=== PATIENT | female | born 1970 | race African-American/Black ===

== ENCOUNTER 2024-11-03 20:16 | Inpatient (IN) | payer OTHER, SELFPAY ==
--- NOTE | 2024-11-03 21:31 | RAD REPORT ---
EXAMINATION: Pelvis CLINICAL INDICATION: Female, 54 years old. GLF, L hip injury COMPARISON: No prior exam. FINDINGS: Suspected chronic superolateral subluxation at the left femoral head which may be complicated by eith er developmental hip dysplasia or prior avascular necrosis with subchondral collapse and secondary degenerative changes. No definite acute fractures identified. Peripheral vascular calcifications. IMPRESSION: No definite acute osseous abnormality. Left femoral head irregularity and superolateral subluxation i s likely primarily chronic findings though an acute change is difficult in the absence of recent priors.
[2024-11-03] MEDS ORDERED: MORPHINE 4 MG/ML SYR ONE ×2 (21:49→23:07)
[2024-11-03] MEDS ORDERED: ONDANSETRON 4 MG/2 ML VIAL ONE (21:49)
[2024-11-03] MEDS ORDERED: NA CHLORIDE 0.9% 1,000 ML ONE (21:50)
[2024-11-03 21:51] LABS: Absolute Basophils 0.1 K/uL (0-0.5); Absolute Lymphocytes (CBC) 2.6 K/uL (0.7-4.9); Absolute Monocytes 1.6 K/uL (0.1-1.3); Absolute Neutrophil 12.2 K/uL (1.8-8.0); Basophils % 0.4 % (0-1.3); Hematocrit 32.9 % (36.0-45.0); Hemoglobin 10.6 g/dL (12.0-15.0); Lymphocytes % 15.5 % (15.3-44.8); MCH 25.5 pg (27.0-35.0); MCHC 32.1 g/dL (32.0-36.0); MCV 79.5 fL (80-100); MPV 6.5 fL (7.6-11.3); Neutrophils % 74.1 % (41.7-73.7); Nucleated Red Blood Cells % 0.1 % (0-0); Platelets 348 thou/uL (152-406); RBC Red Blood Cell Count 4.14 M/uL (3.86-4.86); Red Cell Distribution Width 20.2 % (12.1-15.2)
[2024-11-03 22:09] LABS: Albumin 2.6 g/dL (3.4-5.0); Albumin/Globulin Ratio 0.6 (1.1-1.8); Anion Gap 13.6 mEq/L (5.0-15.0); Bilirubin Total 0.3 mg/dL (0.2-1.0); Globulin 4.4 g/dL (2.3-3.5); Potassium 3.6 mEq/L (3.5-5.1)
[2024-11-03 22:39] LABS: Anisocytosis 1+; Blood Morphology Comment NOTED (NOT SEEN); Microcytosis 1+; Platelet Estimate ADEQ; White Blood Cell Scan OK (OK)
[2024-11-03 23:56] LABS: Specific Gravity 1.018 (1.005-1.030); Sqamous Epithelial <5 /HPF (None Seen); Urine Bacteria None Seen /HPF (<20); Urine Bilirubin NEGATIVE (Negative); Urine Blood Trace (Negative); Urine Clarity Clear (Clear); Urine Color Yellow (Yellow); Urine Culture Reflex Order NOT NEEDED; Urine Glucose NEGATIVE (Negative); Urine Ketones 2+ (Negative); Urine Micro Reflex YN NO BILL MICROSCOPIC; Urine Mucus Slight /HPF (None Seen); Urine Nitrite NEGATIVE (Negative); Urine Protein TRACE (Negative); Urine RBC <5 /HPF (None Seen); Urine Urobilinogen Normal (Normal); Urine WBC <5 /HPF (<5); Urine pH 6.5 (5.0-7.0)
[2024-11-04] MEDS ORDERED: METHYLPREDNISOLONE 125 MG INJ ONE (01:09)
[2024-11-04] MEDS ORDERED: CEFTRIAXONE 1000 MG/VIAL ONE (01:09)
[2024-11-04] MEDS ORDERED: NA CHLORIDE 0.9% 50 ML ONE (01:09)
[2024-11-04] MEDS ORDERED: NA CHLORIDE 0.9% 250 ML ONE (01:09)
[2024-11-04] MEDS ORDERED: AZITHROMYCIN 500 MG INJ IVPB ONE (01:09)
--- NOTE | 2024-11-04 02:13 | ER ---
[facility] Name: Kelly Acevedo Age: 54 yrs Sex: Female : 1970 Arrival Date: 11/03/2024 Time: 20:16 Bed 4 Private MD: Diagnosis: Unspecified bacterial pneumonia;Sepsis, unspecified organism Presentation: 11/03 20:28 Chief complaint: Patient states: has been experiencing n/v/d, abdominal pain, and al5 weakness for the past week. today her walker got away from her and attempted to catch it, fell and hit her L hip. denies any LOC, head or neck pain. Care prior to arrival: waist binder in place Medication(s) given: 100 mcg fentanyl IM, 4mg zofran IM Glucose check: 88. Mechanism of Injury: Fall. Trauma event details: Injury occurred in the [facility], Injury occurred: at home. Injury occurred: November 03, 2024. 20:28 Acuity: CARO 3 al5 20:28 Method Of Arrival: EMS: [facility] al5 20:35 Coronavirus screen: At this time, the client does not indicate any symptoms associated al5 with coronavirus-19. Ebola Screen: No symptoms or risks identified at this time. Initial Sepsis Screen: Does the patient meet any 2 criteria? HR > 90 bpm. No. Patient's initial sepsis screen is negative. Does the patient have a suspected source of infection? No. Patient's initial sepsis screen is negative. Risk Assessment: Do you want to hurt yourself or someone else? Patient reports no desire to harm self or others. Onset of symptoms was November 03, 2024. Triage Assessment: 20:35 General: see trauma assessment. 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: 20:41 LMP N/A - Post-menopause, Not al5 Trauma Activation: Physician: ED Physician; Name: ; Notified At: ; Arrived At: Physician: General Surgeon; Name: ; Notified At: ; Arrived At: Physician: Radiology; Name: ; Notified At: ; Arrived At: Physician: Respiratory; Name: ; Notified At: ; Arrived At: Physician: Lab; Name: ; Notified At: ; Arrived At: 20:28 n/a al5 Historical: - Allergies: 20:36 PENICILLINS; al5 20:36 Codeine; al5 20:36 tramadol; al5 20:38 NSAIDS; al5 - PMHx: 20:36 Congestive heart failure; Hypertensive disorder; Asthma; tachycardia; al5 - PSHx: 20:36 section; al5 - Immunization history: Last tetanus immunization: unknown. - Infectious Disease History:: Denies. - Social history:: Smoking status: Patient denies any tobacco usage or history of. Screenin:34 Abuse screen: Denies threats or abuse. Denies injuries from another. Nutritional al5 screening: No deficits noted. Tuberculosis screening: No symptoms or risk factors identified. Fall risk At risk due to injury. 20:39 [facility] ED Fall Risk Assessment (Adult) History of falling in the last 3 months, al5 including since admission Yes- single mechanical fall (1 pt) Confusion or Disorientation No (0 pts) Intoxicated or Sedated No (0 pts) Impaired Gait Yes (1 pt) Mobility Assist Device Used Yes (1 pt) Altered Elimination Yes (1 pt) Score/Fall Risk Level 3 or more points = High Risk Oriented to surroundings, Maintained a safe environment, Provided non-skid footwear, Hourly rounding (assess needs \T\ fall precautionary measures) done. Primary Survey: 20:32 NO uncontrolled hemorrhage observed. A: The client is awake and alert. The airway is al5 patent. Breathing/Chest: Spontaneous respiratory effort, equal unlabored respirations, breath sounds clear bilaterally, regular pattern, symmetrical chest rise and fall. Circulation: No external hemorrhage present. Regular and strong central pulse, skin warm/dry/normal color. Disability Pupils are equal, round, reactive to light and accommodation. Client is alert. Exposure/Environment: All clothing and personal items were removed. There is no evidence of uncontrolled external bleeding. Obvious injury(ies) are noted at this time: shortening in L leg, pain in L hip. 11/04 00:20 Reassessment Alertness and Airway: Awake and alert. The airway is patent. Breathing: al5 Spontaneous respiratory effort, equal unlabored respirations, breath sounds clear bilaterally, regular pattern with symmetrical chest rise and fall. Circulation: No external hemorrhage noted. Regular and strong central pulse, skin warm/dry/normal color. Disability: Pupils Pupils are equal, round, reactive to light and accomodation. Alert. Secondary Survey: 11/03 20:32 HEENT: No deficits noted. Gastrointestinal: No deficits noted. : No deficits noted. al5 Musculoskeletal: shortening of L leg, pain in L hip. Assessment: 20:31 General: Appears in no apparent distress. uncomfortable, Behavior is calm, cooperative. al5 Pain: Complains of pain in umbilical area, right upper quadrant and left hip Pain currently is 8 out of 10 on a pain scale. Neuro: Level of Consciousness is awake, alert, obeys commands, Oriented to person, place, time, situation. EENT: No signs and/or symptoms were reported regarding the EENT system. Cardiovascular: Capillary refill < 3 seconds Patient's skin is warm and dry. Respiratory: Airway is patent Respiratory effort is even, unlabored, Respiratory pattern is regular, symmetrical. GI: Abdomen is round non-distended, Reports upper abdominal pain, diarrhea, nausea, vomiting. : No signs and/or symptoms were reported regarding the genitourinary system. Derm: Skin is intact, is healthy with good turgor, Skin is pink, warm \T\ dry. normal. Musculoskeletal: shortening in L leg Reports pain in left hip. 21:24 Reassessment: Patient appears in no apparent distress at this time. No changes from al5 previously documented assessment. Patient and/or family updated on plan of care and expected duration. Pain level reassessed. Patient is alert, oriented x 3, equal unlabored respirations, skin warm/dry/pink. 22:18 Reassessment: Patient appears in no apparent distress at this time. No changes from al5 previously documented assessment. Patient and/or family updated on plan of care and expected duration. Pain level reassessed. Patient is alert, oriented x 3, equal unlabored respirations, skin warm/dry/pink. 23:30 Reassessment: Patient appears in no apparent distress at this time. No changes from al5 previously documented assessment. Patient and/or family updated on plan of care and expected duration. Pain level reassessed. Patient is alert, oriented x 3, equal unlabored respirations, skin warm/dry/pink. 11/04 00:19 Reassessment: Patient appears in no apparent distress at this time. No changes from al5 previously documented assessment. Patient and/or family updated on plan of care and expected duration. Pain level reassessed. Patient is alert, oriented x 3, equal unlabored respirations, skin warm/dry/pink. 01:21 Reassessment: Patient appears in no apparent distress at this time. No changes from al5 previously documented assessment. Patient and/or family updated on plan of care and expected duration. Pain level reassessed. Patient is alert, oriented x 3, equal unlabored respirations, skin warm/dry/pink. 02:08 Reassessment: Patient appears in no apparent distress at this time. No changes from al5 previously documented assessment. Patient and/or family updated on plan of care and expected duration. Pain level reassessed. Patient is alert, oriented x 3, equal unlabored respirations, skin warm/dry/pink. Vital Signs: 11/03 20:35 BP 127 / 83; Pulse 114; Resp 18; Temp 98.4; Pulse Ox 99% on R/A; Weight 66.68 kg; al5 Height 5 ft. 1 in. ; Pain 06/03; 21:00 BP 123 / 84; Pulse 117; Resp 18; Pulse Ox 98% on R/A; al5 21:35 BP 128 / 74; Pulse 111; Resp 17; Pulse Ox 98% on R/A; al5 22:00 BP 110 / 71; Pulse 110; Resp 17; Pulse Ox 96% on R/A; al5 22:30 BP 100 / 62; Pulse 103; Resp 16; Pulse Ox 96% on R/A; al5 23:00 BP 129 / 82; Pulse 103; Resp 18; Pulse Ox 100% on R/A; al5 11/04 00:00 BP 116 / 73; Pulse 99; Resp 16; Pulse Ox 100% on R/A; al5 00:14 BP 116 / 73; Pulse 105; ec2 00:30 BP 115 / 68; Pulse 100; Resp 17; Pulse Ox 96% on R/A; al5 01:00 BP 115 / 72; Pulse 100; Resp 18; Pulse Ox 94% on R/A; al5 01:30 BP 100 / 68; Pulse 97; Resp 15; Pulse Ox 95% on R/A; al5 02:00 BP 96 / 70; Pulse 99; Resp 16; Pulse Ox 95% on R/A; al5 02:30 BP 98 / 67; Pulse 101; Resp 16; Pulse Ox 96% on R/A; al5 02:46 BP 97 / 58; Pulse 102; Resp 15; Pulse Ox 96% on R/A; al5 03:00 BP 98 / 62; Pulse 102; Resp 15; Pulse Ox 96% on R/A; al5 11/03 20:35 Body Mass Index 27.78 (66.68 kg, 154.94 cm) al5 02 20:35 Pain Scale: Adult al5 Saravanan Coma Score: 11/03 20:40 Eye Response: spontaneous(4). Motor Response: obeys commands(6). Verbal Response: al5 oriented(5). Total: 15. Trauma Score (Adult): 20:40 Eye Response: spontaneous(1); Verbal Response: oriented(1); Motor Response: obeys al5 commands(2); Systolic BP: > 89 mm Hg(4); Respiratory Rate: 10 to 29 per min(4); Saravanan Score: 15; Trauma Score: 12 ED Course: 20:27 Patient arrived in ED. ec2 20:27 Marino Lira MD is Attending Physician. ec2 20:27 Sherlyn Burns RN is Primary Nurse. al5 20:30 Triage completed. al5 20:34 Patient has correct armband on for positive identification. Placed in gown. Bed in low al5 position. Call light in reach. Side rails up X2. 20:34 No provider procedures requiring assistance completed. Patient maintains SpO2 al5 saturation greater than 95% on room air. 20:40 Arm band placed on right wrist. Patient placed in the treatment room, on a stretcher, al5 on pulse oximetry. 20:40 Thermoregulation: warm blanket given to patient. al5 20:41 Provided Education on: plan of care. al5 21:04 Pelvis XRAY In Process Unspecified. EDMS 21:28 Missed attempt(s): 22 gauge in right antecubital area. Bleeding controlled, band aid al5 applied, catheter tip intact. 21:28 Missed attempt(s): 22 gauge in right forearm. Bleeding controlled, band aid applied, al5 catheter tip intact. 21:47 CBC with Diff Sent. al5 21:47 CMP Sent. al5 21:47 Lipase Sent. al5 21:49 Accessed peripheral vein via ultrasound, utilizing dynamic ultrasound technique Blood cm10 collected. Clean \T\ dry. Dressing intact. Good blood return. Flushes easily. 20G right wrist.. Missed attempt(s): 20 gauge in left forearm. Bleeding controlled, band aid applied, catheter tip intact. 22:47 Cop[place] cath inserted, using sterile technique, 16 Fr., by me, balloon inflated, to al5 gravity drainage, urine specimen collected. Patient tolerated well. 23:29 Abdomen In Process Unspecified. EDMS 02 01:24 CXR XRAY In Process Unspecified. EDMS 02:12 Franki Haji MD is Hospitalizing Provider. ec2 03:07 Patient admitted, IV remains in place. al5 Administered Medications: 11/03 22:00 Drug: Ondansetron IVP 4 mg IVP once; over 2 minutes Route: IVP; Site: right forearm; al5 22:40 Follow up: Response: No adverse reaction al5 22:00 Drug: morphine IVP or IV 4 mg IVP once over 4 mins Route: IVP; Infused Over: 4 mins; al5 Site: right forearm; 22:40 Follow up: Response: No adverse reaction; Pain is decreased al5 22:00 Drug: NS 0.9% IV 1000 ml IV at 1 bolus Per protocol; to be given as a bolus over 60 al5 minutes Route: IV; Rate: 1 bolus; Site: right forearm; 11/04 00:16 Follow up: Response: No adverse reaction; IV Status: Completed infusion; IV Intake: al5 1000ml 11/03 23:16 Drug: morphine IVP or IV 4 mg IVP once over 4 mins Route: IVP; Infused Over: 4 mins; al5 Site: right forearm; 11/04 01:43 Follow up: Response: No adverse reaction; No adverse reaction; brought pain down a al5 little bit 01:19 Drug: Rocephin IV 1 grams IV at bolus once; Given slow IV push per pharmacy al5 instructions Route: IV; Rate: bolus; Site: right forearm; 01:43 Follow up: Response: No adverse reaction; IV Status: Completed infusion; IV Intake: [id number] 01:19 Not Given (Patient Refused; states last time she had it, put her in a diabetic comaa): al5 [id number] mg IVP once 01:43 Drug: AZITHromycin IVPB 500 mg IVPB once over 1 hrs; (mix in 250 mL NS) Route: IVPB; al5 Infused Over: 1 hrs; Site: right forearm; 03:06 Follow up: Response: No adverse reaction; IV Status: Completed infusion; IV Intake: al5 250ml 03:06 Not Given (Hemodynamic Parameters; bp 97/58, physician notified. pain medication al5 changee): morphineor iv 4 mg IVP once over 4 mins 03:06 Drug: fentaNYL (PF) IVP 25 mcg IVP once Route: IVP; Site: right forearm; al5 04:50 Follow up: Response: No adverse reaction; Pain is unchanged, physician notified al5 05:26 Drug: morphine IVP or IV 4 mg IVP once over 4 mins Route: IVP; Infused Over: 4 mins; al5 Site: right forearm; 06:51 Follow up: Response: No adverse reaction; Pain is decreased al5 Medication: 11/03 20:39 VIS not applicable for this client. al5 Intake: 11/04 00:16 IV: 1000ml; Total: 1000ml. al5 01:43 IV: 50ml; Total: 1050ml. al5 03:06 IV: 250ml; Total: 1300ml. al5 11/03 20:40 n/a al5 Outcome: 11/04 02:12 Decision to Hospitalize by Provider. ec2 03:07 Admitted to ER Hold. Please see [facility] for further documentation. al5 03:07 Condition: stable 03:07 Instructed on the need for admit, 03:07 Patient's length of stay in the Emergency Department was greater than 2 hours. patient admitted to ED holdPatient's length of stay extended due to 08:12 Patient left the ED. iw Signatures: Dispatcher [employer] Heydi Beckman RN RN iw Martinez, Clarissa, RN RN cm10 Marino Lira MD MD 2 Sherlyn Burns RN RN al5 Corrections: (The following items were deleted from the chart) 11/03 21:29 21:28 Missed attempt(s): 22 gauge in right antecubital area. al5 al5
--- NOTE | 2024-11-04 02:13 | EDPHYS ---
Physician Documentation [facility] Name: Kelly Acevedo Age: 54 yrs Sex: Female : 1970 Arrival Date: 11/03/2024 Time: 20:16 Bed 4 Private MD: ED Physician Marino Lira HPI: 11/03 20:28 This 54 yrs old Female presents to ER via Unassigned with complaints of Hip Injury, Hip ec2 Pain, Abdominal Pain, Nausea/Vomiting/Diarrhea. 20:29 Patient arrives today for evaluation of abdominal pain along with nausea and vomiting ec2 and left hip pain. Patient reports she has been having abdominal pain along with nausea vomiting for the past week. Reports decreased p.o. intake. Reports that she was walking as well and had a ground-level fall. No LOC, no head strike, no neck pain. Patient reports a baseline history of tachycardia and is baseline tachycardic with heart rate in the 110s.. 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 - Infectious Disease History:: Denies. - Social history:: Smoking status: Patient denies any tobacco usage or history of. ROS: 20:30 Constitutional: as per hpi ec2 Exam: 20:30 Constitutional: GEN: NAD Head: atraumatic Eyes: EOMI Ears: External ears are ec2 normal. CV: regular rate LUNGS: no respiratory distress ABD: non-distended, soft, generally tender, chronic, not rigid. SKIN: no evidence of rashes MSK: Left hip with TTP, intact distal neurovascular status Vital Signs: 20:35 BP 127 / 83; Pulse 114; Resp 18; Temp 98.4; Pulse Ox 99% on R/A; Weight 66.68 kg; al5 Height 5 ft. 1 in. ; Pain 9/10; 21:00 BP 123 / 84; Pulse 117; Resp 18; Pulse Ox 98% on R/A; al5 21:35 BP 128 / 74; Pulse 111; Resp 17; Pulse Ox 98% on R/A; al5 22:00 BP 110 / 71; Pulse 110; Resp 17; Pulse Ox 96% on R/A; al5 22:30 BP 100 / 62; Pulse 103; Resp 16; Pulse Ox 96% on R/A; al5 23:00 BP 129 / 82; Pulse 103; Resp 18; Pulse Ox 100% on R/A; al5 11 00:00 BP 116 / 73; Pulse 99; Resp 16; Pulse Ox 100% on R/A; al5 00:14 BP 116 / 73; Pulse 105; ec2 00:30 BP 115 / 68; Pulse 100; Resp 17; Pulse Ox 96% on R/A; al5 01:00 BP 115 / 72; Pulse 100; Resp 18; Pulse Ox 94% on R/A; al5 01:30 BP 100 / 68; Pulse 97; Resp 15; Pulse Ox 95% on R/A; al5 02:00 BP 96 / 70; Pulse 99; Resp 16; Pulse Ox 95% on R/A; al5 02:30 BP 98 / 67; Pulse 101; Resp 16; Pulse Ox 96% on R/A; al5 02:46 BP 97 / 58; Pulse 102; Resp 15; Pulse Ox 96% on R/A; al5 03:00 BP 98 / 62; Pulse 102; Resp 15; Pulse Ox 96% on R/A; al5 11/03 20:35 Body Mass Index 27.78 (66.68 kg, 154.94 cm) al5 11/03 20:35 Pain Scale: Adult al5 Saravanan Coma Score: 11/03 20:40 Eye Response: spontaneous(4). Motor Response: obeys commands(6). Verbal Response: al5 oriented(5). Total: 15. Trauma Score (Adult): 20:40 Eye Response: spontaneous(1); Verbal Response: oriented(1); Motor Response: obeys al5 commands(2); Systolic BP: > 89 mm Hg(4); Respiratory Rate: 10 to 29 per min(4); Pfeifer Score: 15; Trauma Score: 12 MDM: 20:27 Medical Screening Exam initiated ec2 20:30 Data reviewed: vital signs, nurses notes. ED course: Patient arrives today with ec2 abdominal pain along with nausea and vomiting and left ear pain after GLF. Examination yields MSK findings as above. Will obtain lumbar, CT imaging.. 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 Given the concurrent leukocytosis and nausea and vomiting, will treat for pneumonia with Rocephin and azithromycin. Will admit the patient for possible pneumonia, will defer MRI to inpatient team. Orthopedic surgery is available for consultation.. 11/03 20:28 Order name: CBC with Diff; Complete Time: 22:49 ec2 11/03 20:28 Order name: CMP; Complete Time: 22:36 ec2 11/03 20:28 Order name: Lipase; Complete Time: 22:36 ec2 11/03 20:28 Order name: UAM; Complete Time: 23:58 ec2 11/03 21:56 Order name: CBC Smear Scan; Complete Time: 22:49 EDMS 11/04 00:42 Order name: Blood Culture Adult (2) ec2 11/04 00:42 Order name: Lactate w/ 2H reflex if indic.; Complete Time: 01:56 ec2 11/04 02:32 Order name: Urinalysis w/ reflexes EDMS 11/04 02:32 Order name: CBC with Automated Diff EDMS 11/04 02:32 Order name: CBC with Automated Diff EDMS 11/04 02:32 Order name: Comprehensive Metabolic Panel EDMS 11/04 02:32 Order name: Comprehensive Metabolic Panel EDRI 11/03 20:28 Order name: Pelvis XRAY; Complete Time: 21:51 ec2 11/03 23:17 Order name: Abdomen EDMS 11/04 00:40 Order name: CXR XRAY ec2 11/04 02:33 Order name: Hip Bilat Wo Cont EDMS 11/04 02:32 Order name: CONS Physician Consult EDMS 11/03 20:28 Order name: IV Saline Lock; Complete Time: 21:47 ec2 11/03 20:28 Order name: Labs collected and sent; Complete Time: 21:47 ec2 11/03 20:28 Order name: Cath; Complete Time: 23:17 ec2 Administered Medications: 11/03 22:00 Drug: Ondansetron IVP 4 mg IVP once; over 2 minutes Route: IVP; Site: right forearm; al5 22:40 Follow up: Response: No adverse reaction al5 22:00 Drug: morphine IVP or IV 4 mg IVP once over 4 mins Route: IVP; Infused Over: 4 mins; al5 Site: right forearm; 22:40 Follow up: Response: No adverse reaction; Pain is decreased al5 22:00 Drug: NS 0.9% IV 1000 ml IV at 1 bolus Per protocol; to be given as a bolus over 60 al5 minutes Route: IV; Rate: 1 bolus; Site: right forearm; 11/04 00:16 Follow up: Response: No adverse reaction; IV Status: Completed infusion; IV Intake: al5 1000ml 11/03 23:16 Drug: morphine IVP or IV 4 mg IVP once over 4 mins Route: IVP; Infused Over: 4 mins; al5 Site: right forearm; 11/04 01:43 Follow up: Response: No adverse reaction; No adverse reaction; brought pain down a al5 little bit 01:19 Drug: Rocephin IV 1 grams IV at bolus once; Given slow IV push per pharmacy al5 instructions Route: IV; Rate: bolus; Site: right forearm; 01:43 Follow up: Response: No adverse reaction; IV Status: Completed infusion; IV Intake: [id number] 01:19 Not Given (Patient Refused; states last time she had it, put her in a diabetic comaa): al5 [id number] mg IVP once 01:43 Drug: AZITHromycin IVPB 500 mg IVPB once over 1 hrs; (mix in 250 mL NS) Route: IVPB; al5 Infused Over: 1 hrs; Site: right forearm; 03:06 Follow up: Response: No adverse reaction; IV Status: Completed infusion; IV Intake: al5 250ml 03:06 Not Given (Hemodynamic Parameters; bp 97/58, physician notified. pain medication al5 changee): morphineor iv 4 mg IVP once over 4 mins 03:06 Drug: fentaNYL (PF) IVP 25 mcg IVP once Route: IVP; Site: right forearm; al5 04:50 Follow up: Response: No adverse reaction; Pain is unchanged, physician notified al5 05:26 Drug: morphine IVP or IV 4 mg IVP once over 4 mins Route: IVP; Infused Over: 4 mins; al5 Site: right forearm; 06:51 Follow up: Response: No adverse reaction; Pain is decreased al5 Disposition Summary: 11/04/24 02:12 Hospitalization Ordered Notes: Hospitalization Status: Inpatient Admission ec2 Provider: Franki Haji ec2 Location: Telemetry/MedSurg (Inpatient) ec2 Condition: Stable ec2 Problem: an acute exacerbation ec2 Symptoms: are unchanged ec2 Bed/Room Type: Standard ec2 Room Assignment: 425(11/04/24 06:28) Diagnosis - Unspecified bacterial pneumonia ec2 - Sepsis, unspecified organism ec2 Forms: - Medication Reconciliation Form ec2 - SBAR form ec2 - Leadership Thank You Letter ec2 Critical care time excluding procedures: 02:12 Critical care time: Bedside Care: 30 minutes, Consultation: 5 minutes. Total time: 35 ec2 minutes Signatures: Dispatcher [employer] Yoly Radford RN RN kl Corral, Edwin, MD MD ec2 Sherlyn Burns RN RN al5 Corrections: (The following items were deleted from the chart) 11/03 20:29 20:29 Patient arrives today for evaluation of abdominal pain along with nausea and ec2 vomiting and left hip pain. Patient reports she has been having abdominal pain along with nausea vomiting for the past week. Reports decreased p.o. intake. Reports that she was walking as well and had a ground-level fall. No LOC, no head strike, no neck pain.. ec2 23:17 20:29 Abdomen Pelvis W Con+CT.RAD.BRZ ordered. EDRI EDRI 11/04 00:40 00:40 Chest Single View+RAD.RAD.BRZ ordered. EDRI EDRI 06:28 02:12 ec2 kl
[2024-11-04] MEDS ORDERED: ACETAMINOPHEN 325 MG TABLET PO PRN (02:27)
--- NOTE | 2024-11-04 02:27 | P.HP ---
Certification for Inpatient Patient admitted to: Inpatient With expected LOS: >2 Midnights Practitioner: I am a practitioner with admitting privileges, knowledge of patient current condition, hospital course, and medical plan of care. Services: Services provided to patient in accordance with Admission requirements found in Title 42 Section 412.3 of the Code of Federal Regulations Patient History Date of Service: 11/04/24 Reason for admission: Left Hip Pain History of Present Illness: 54 yrs old Female with past medical history of hypertension, congestive heart failure, asthma, tachycardia was brought to ER with pain in left hip. She also complains of abdominal pain and nausea and vomiting which has been going on for the last 1 week and has not been eating well. She had a ground level fall and started having pain in the left hip. Denies any loss of consciousness. Denies any pain in the head. No fever or chills. No nausea vomiting or diarrhea. Patient was assessed in the ER and is admitted for further management Home medications list reviewed: Yes - Past Medical/Surgical History Past Medical History: Reviewed- Non-Contributory -: Hypertension, CHF, asthma, Past Surgical History: Reviewed- Non-Contributory - Family History Family History: Reviewed- Non-Contributory - Social History Smoking Status: Former smoker Review of Systems 10-point ROS is otherwise unremarkable Physical Examination - Vital Signs Temperature: 97.8 F Blood Pressure: 96/62 Pulse: 98 Respirations: 18 Pulse Ox (%): 94 - Physical Exam General: Alert, Oriented x3, Mild distress, Obese HEENT: Atraumatic, Normocephalic Neck: Supple Respiratory: Clear to auscultation bilaterally, Normal air movement Cardiovascular: Regular rate/rhythm, Normal S1 S2 Capillary refill: <2 Seconds Gastrointestinal: Soft and benign, W/out hepatosplenomegaly Musculoskeletal: No clubbing Integumentary: No rashes Neurological: Normal speech, Normal strength at 5/5 x4 extr, Cranial nerves 3-12 intact Lymphatics: No axilla or inguinal lymphadenopathy - Studies Laboratory Data (last 24 hrs) 11/03/24 11/03/24 21:45 21:45 WBC 16.50 H Hgb 10.6 L Hct 32.9 L Plt Count 348 Sodium 134 L Potassium 3.6 BUN 8 Creatinine 0.84 Glucose 74 Total Bilirubin 0.3 AST 27 ALT 50 Alkaline Phosphatase 68 Lipase 41 Assessment and Plan - Plan Left hip pain Pain control X-ray noted No definite acute osseous abnormality. Left femoral head irregularity and superolateral subluxation is likely primarily chronic findings though an acute change is difficult in the absence of recent Orthopedic consultation Will get an MRI of the left hip Hyponatremia IV hydration in moderation given CHF Monitor closely Monitor renal parameters Electrolytes monitor and replace accordingly Anemia of chronic disease Monitor H&H closely No overt bleeding at this time GI/DVT prophylaxis Advanced directive full code Discharge Plan: Home Plan to discharge in: 48 Hours - Advance Directives Does patient have a Living Will: No Does patient have a Durable POA for Healthcare: No - Code Status/Comfort Care Code Status: Full Code Time Spent Managing Pts Care (In Minutes): 48
[2024-11-04] MEDS ORDERED: MORPHINE 4 MG/ML SYR ONE ×2 (02:53→05:21)
[2024-11-04] MEDS ORDERED: FENTANYL CITR 100 MCG/2 ML ONE (03:00)
[2024-11-04 03:52] VITALS: BMI 27.8
--- NOTE | 2024-11-04 05:09 | RAD REPORT ---
EXAM DESCRIPTION: Abdomen Pelvis Wo Contrast CLINICAL HISTORY: 54 years Female Abdominal pain, nausea, vomiting, left hip injury. COMPARISON: CTAbdomen pelvis WO IV contrast 04/09/2024. TECHNIQUE: Images were obtained in axial, coronal and sagittal planes. No contrast administration. This exam was performed according to our departmental dose-optimization program which includes use of Automated Exposure Control, adjustment o f the mA and/or kV according to patient size and/or use of iterative reconstruction technique. FINDINGS: No abnormality involving the liver, spleen, pancreas, gallbladder, or adrenal glands bilaterally. Mod erate-sized hiatal hernia. No obstructing renal or ureteral calculi bilaterally. No hydronephrosis bilaterally. Copeland catheter b alloon within the bladder. Bladder is decompressed. Retroverted uterus. Flocculent calcification seen possibly fibroid change. Appendix within normal limits. No bowel obstruction, perforation, or inflammation. No dilatation of the abdominal aorta. Inferior vena cava filter. Nodular airspace attenuation lower lobes bilaterally possibly bilateral infiltrates as well as underl radha chronic change. Deformity left femoral head with marked joint space narrowing as well as erosive changes superior fem oral head and adjacent acetabulum. Lateral subluxation of left femoral head with bony overgrowth identified medially. The fi ndings could be consistent with severe osteoarthritic change and avascular necrosis however septic arthritis is not excluded. Subacut e or more remote trauma with subsequent degenerative change also a consideration. Compression fracture of indeterminate age L4. As sociated Schmorl's node superior endplate L4. IMPRESSION: 1. No acute intra-abdominal abnormality. 2. Deformity left femoral head with marked joint space narrowing as well as erosive changes superior femoral head and adjacent acetabulum. The findings could be consistent with severe osteoarthritic change and avascular necrosis however septic arthritis is not excluded. Subacute or more remote trauma with subsequent degenerative change also a consideration. Co rrelation with magnetic resonance study of the left hip needed for further characterization. 3. Compression fracture of indeterminate age L4. 4. Nodular airspace attenuation lower lobes bilaterally possibly bilateral infiltrates as well as und erlying chronic change. Electronically signed by: Niesha Paulino MD 11/04/2024 12:35 AM [facility] [address] [id number] Final Radiology Report Name: KAHLIL BARRETT Age: 54y Date: 11/03/2024 8:28 PM : 1970 Study: Abdomen Pelvis Wo Contrast Requesting Physician: Marino Lira [id number] KAHLIL BARRETT Page [phone] Due to temporary technical issues with the PACS/[employer] reporting system, reports are being manfred d by the in-house radiologist without review as a courtesy to ensure prompt reporting the interpreting radiologist is fully responsible for the content of the report. Transcribed Date/Time: 11/04/2024 5:09 AM
[2024-11-04] MEDS ORDERED: KETOROLAC 30 MG/ML INJ IV PRN (05:19)
--- NOTE | 2024-11-04 05:24 | RAD REPORT ---
EXAM DESCRIPTION: Chest Single View CLINICAL HISTORY: COUGH COMPARISON: None TECHNIQUE: Single AP view of the chest. FINDINGS: Lung volumes adequate. Cardiac silhouette is normal in size. No pneumothorax. No large pleural effusion. No focal consolidation. No acute bony finding. IMPRESSION: No evidence of acute cardiopulmonary disease. Electronically signed by: Meghann Velasquez MD 11/04/2024 01:54 AM [facility] Z[facility] Due to temporary technical issues with the PACS/[employer] reporting system, reports are being manfred d by the in-house radiologist without review as a courtesy to ensure prompt reporting the interpreting radiologist is fully responsible for the content of the report. Transcribed Date/Time: 11/04/2024 5:24 AM
[2024-11-04 06:16] LABS: Renal Epithelial <5 /HPF (None Seen); Specific Gravity 1.018 (1.005-1.030); Sqamous Epithelial <5 /HPF (None Seen); Urine Bacteria None Seen /HPF (<20); Urine Bilirubin NEGATIVE (Negative); Urine Blood 1+ (Negative); Urine Clarity Clear (Clear); Urine Color Yellow (Yellow); Urine Culture Reflex Order NOT NEEDED; Urine Glucose NEGATIVE (Negative); Urine Ketones 3+ (Negative); Urine Microscopic Reflex YN ORDER UMIC; Urine Mucus Slight /HPF (None Seen); Urine Nitrite NEGATIVE (Negative); Urine Protein TRACE (Negative); Urine Urobilinogen Normal (Normal); Urine WBC <5 /HPF (<5)
[2024-11-04] MEDS: ENOXAPARIN 40 MG/0.4 ML SQ SCH (09:00)
[2024-11-04] MEDS ORDERED: CELECOXIB 100 MG CAPSULE PO SCH (09:00)
[2024-11-04] MEDS: DIAZEPAM 10 MG/2 ML INJ SYRINGE IV ONE (10:09)
[2024-11-04] MEDS: MORPHINE 4 MG/ML SYR IV PRN (10:14)
[2024-11-04] MEDS: ONDANSETRON 4 MG/2 ML VIAL IV PRN (10:14)
[2024-11-04] MEDS: DIPHENHYDRAMINE 25 MG TAB/CAP PO ONE (10:57)
--- NOTE | 2024-11-04 18:06 | RAD REPORT ---
EXAMINATION: MRI BILATERAL HIP CLINICAL INDICATION: Female, 54 years old. Pain TECHNIQUE: Multiplanar, multi sequence imaging was performed of the right and left hip without contra st. Unless otherwise specified, incidental findings do not require dedicated imaging follow-up. COMPARISON: CT abdomen and pelvis 11/03/2024 FINDINGS BONE MARROW: Bilateral geographic regions of low signal intensity in the subchondral bone of both fem oral heads, with surrounding linear serpiginous T2 hyperintense signal, compatible with sequelae of avascular necrosis. There is osseous remodeling with subchondral collapse along the left femoral head superior aspect, with osseous remodeling of superior acetabular contour is well, and moderate lateral subluxation of the femoral head. SYNOVIUM/JOINT: [id number] left hip joint effusion. Heterogeneous T2 hyperintense cystic compon ent adjacent to the left hip joint capsule superiorly measuring 1.6 x 0.9 x 2.3 cm in greatest transverse, cc, and AP dimensions, may represent a ganglion or para labral cyst. Trace right hip join t effusion. HYALINE CARTILAGE AND SUBCHONDRAL BONE: Severe cartilage loss throughout the left hip joint, and mild to moderate cartilage loss on the right. LABRUM: No appreciable components of the labrum on the left throughout. The right acetabular labrum i s fairly preserved, on this nonarthrographic exam. MUSCLE AND TENDONS: Extensive edema in the periarticular muscles of the left hip, extending superiorl y to involve the gluteus minimus and medius, and medially to involve the obturator externus, almost reaching its pubic attachment. Right Abductors, external rotators, adductors, iliopsoas and hamstring muscles and tendons are normal. INTRAPELVIC AND PERIPHERAL SOFT TISSUES: Bladder is decompressed with Copeland catheter in place. Viola us uterine fibroids, demonstrating low signal intensity suggesting hemorrhagic degeneration, largest along the fundus posteriorly measuring up to 3.8 cm. IMPRESSION: No evidence of acute fractures Extensive marrow signal abnormality in the subchondral bone along the left hip, suggesting severe ost eoarthritic changes with background changes of AVM. Changes of AVN on the right, with no subchondral bone displacement and only mild to moderate cartilage loss. Subchondral bone collapse and a degree of lateral subluxation of the femoral head relative to the ernesto tabulum also noted on the left. Left hip periarticular muscle edema with moderate pleural effusion, likely reactive. Septic arthritis would be considered less likely although not entirely excluded. Sizable ganglion cyst versus para labral cyst along the superior left hip joint capsule measuring up to 2.3 cm.
--- NOTE | 2024-11-04 18:26 | P.PN ---
Date of Service: 11/04/24 Rec'd pt to [phone] from am admission crying with significant left hip pain s/p fall. She is in a Joni splint with pillows for adduction, + peripheral pulses. Morphine and Valium ordered for pain. Awaiting MRI and ortho consultation.
[2024-11-04] MEDS: DIAZEPAM 5 MG TABLET PO ONE (22:55)
[2024-11-04] MEDS ORDERED: ALBUTEROL INHALER 200 PUFF/6.7 GM IH PRN (23:33)
[2024-11-05] MEDS ORDERED: ALBUTEROL 2.5 MG/3 ML NEB SOL NEB PRN (01:10)
[2024-11-05] MEDS: DIPHENHYDRAMINE 25 MG TAB/CAP PO PRN ×2 (01:14→17:30)
[2024-11-05] MEDS: OXYCODONE HCL 5 MG TAB PO PRN (05:27)
[2024-11-05 07:03] LABS: Absolute Basophils 0.1 K/uL (0-0.5); Absolute Lymphocytes (CBC) 2.3 K/uL (0.7-4.9); Absolute Neutrophil 7.4 K/uL (1.8-8.0); Basophils % 1.1 % (0-1.3); Eosinophils % 0.1 % (0-4.4); Hematocrit 35.4 % (36.0-45.0); Hemoglobin 11.2 g/dL (12.0-15.0); Lymphocytes % 20.9 % (15.3-44.8); MCH 24.9 pg (27.0-35.0); MCHC 31.5 g/dL (32.0-36.0); MPV 8.3 fL (7.6-11.3); Monocytes % 9.4 % (3.3-12.3); Neutrophils % 68.5 % (41.7-73.7); Nucleated RBC Absolute Count 0.1 (0-0); Nucleated Red Blood Cells % 0.5 % (0-0); Percent Reticulocyte Count 1.13 % (0.4-2.05); Platelets 306 thou/uL (152-406); RBC Red Blood Cell Count 4.49 M/uL (3.86-4.86); Red Cell Distribution Width 20.7 % (12.1-15.2)
[2024-11-05 07:13] LABS: Albumin 2.1 g/dL (3.4-5.0); Albumin/Globulin Ratio 0.5 (1.1-1.8); Anion Gap 11.3 mEq/L (5.0-15.0); Bilirubin Total 0.2 mg/dL (0.2-1.0); Ferritin 673.7 ng/mL (8-252); Globulin 3.9 g/dL (2.3-3.5); Magnesium 1.5 mg/dL (1.6-2.4); Phosphorus 3.4 mg/dL (2.5-4.9); Potassium 3.3 mEq/L (3.5-5.1)
[2024-11-05] MEDS: DIPHENHYDRAMINE 50 MG/ML VIAL IV ONE (08:33)
[2024-11-05] MEDS: DULOXETINE 30 MG CAP PO SCH (08:35)
[2024-11-05] MEDS: PRIMIDONE 50 MG TAB PO SCH (08:39)
[2024-11-05] MEDS: POTASSIUM CL SA 10 MEQ TAB PO ONE (08:40)
[2024-11-05] MEDS: BUSPIRONE HCL 5 MG TABLET PO SCH (08:40)
[2024-11-05] MEDS: Magnesium Sulfate 2gm IVPB 2 G/50 ML BAG IV ONE (08:41)
[2024-11-05] MEDS: METOPROLOL XL 50 MG TAB PO SCH (08:41)
[2024-11-05] MEDS: FUROSEMIDE 40 MG TABLET PO SCH (08:41)
[2024-11-05] MEDS: SOD FERRIC GLUC COMPLX/SUCROSE 250 MG in NA CHLORIDE 0.9% 250 ML IV SCH (10:20)
--- NOTE | 2024-11-05 11:58 | P.PN ---
Date of Service: 11/05/24 Review of Systems 10-point ROS is otherwise unremarkable Physical Examination - Vital Signs reviewed - Physical Exam General: Alert, Oriented x3, Mild distress, Obese, tearful and excitable HEENT: Atraumatic, Normocephalic Neck: Supple Respiratory: Clear to auscultation bilaterally, Normal air movement Cardiovascular: Regular rate/rhythm, Normal S1 S2 Capillary refill: <2 Seconds Gastrointestinal: Soft and benign, W/out hepatosplenomegaly Musculoskeletal: No clubbing Integumentary: No rashes Neurological: Normal speech, Normal strength at 5/5 x3 extr, resists movement of left lower ext second to excrutiating pain, Cranial nerves 3-12 intact Lymphatics: No axilla or inguinal lymphadenopathy Assessment and Plan Severe Left hip pain/s/p fall Pain control X-ray noted No definite acute osseous abnormality. 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
[2024-11-05] MEDS ORDERED: MORPHINE 4 MG/ML SYR IV PRN (12:05)
[2024-11-05] MEDS: MORPHINE 4 MG/ML SYR IV PRN (13:08)
--- NOTE | 2024-11-05 21:29 | CON ---
Reason For Consultation: Left hip pain. History Of Present Illness: Ms. Acevedo is a -[id number] woman who complains of pain in her left hip. She has longstanding history. This has been treated on an outpatient basis. She complai ns of pain in the hospital. She was hospitalized for an unrelated issue. 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 This is longstanding in nature and would require a fairly extensive hip replacement. This can be performed on an outpatient basis in followup. Otherwise, considering the longstanding nature, she should return to her baseline relatively quickly. EUNICE/CHAPIN Voice ID: [id number] Report ID: [id number]
[2024-11-06 08:08] LABS: Anion Gap 10.8 mEq/L (5.0-15.0); Magnesium 1.9 mg/dL (1.6-2.4); Potassium 3.8 mEq/L (3.5-5.1)
[2024-11-06] MEDS: DIPHENHYDRAMINE 50 MG/ML VIAL IV ONE (12:25)
--- NOTE | 2024-11-06 12:27 | P.DS ---
Admission Date: 11/04/24 Discharge Date: 11/09/24 Reason for Admission: Left Hip Pain Consultations: Dr. Patel Procedures: MRI Brief History of Present Illness: 54 yrs old Female with past medical history of hypertension, congestive heart failure, asthma, tachycardia was brought to ER with pain in left hip. She also complains of abdominal pain and nausea and vomiting which has been going on for the last 1 week and has not been eating well. She had a ground level fall and started having pain in the left hip. Denies any loss of consciousness. Denies any pain in the head. No fever or chills. No nausea vomiting or diarrhea. Patient was assessed in the ER and is admitted for further management Hospital Course: Ms. Acevedo had a MRI of bilateral hips and is noted to have severe AVN of the left hip. Dr. Patel advised to stop taking narcotics and begin ambulating and weight bearing as much as possible. She will definitely require a total hip replacement but it can be done on an outpatient basis. Ms. Acevedo has both a walker and a rollator at home. Case management worked with her insurance and was able to deliver her a wheelchair to her room. She worked with physical therapy p rior to discharge and will need to avoid prednisone in the future if at all possible. Case management is also working to arrange home health and Ms. Acevedo is very much looking forward to the assistance. <Lorna Stephens - Last Filed: 11/09/24 13:25> Admission Date: 11/04/24 Discharge Date: 11/09/24 Hospital Course: Patient is ready for discharge from medical standpoint, discharge was ordered today however she cannot go home due to her home situation today. She may be able to be discharged home on Sunday when her family member is available. Therefore discharge order was canceled. <CARLOS Ro - Last Filed: 11/09/24 16:29> Disposition: ROUTINE DISCHARGE Discharge Condition: GOOD Vital Signs/Physical Exam: Temp Pulse Resp BP Pulse Ox 98.3 F 102 H 16 102/63 98 11/06/24 10:50 11/06/24 10:50 11/06/24 10:53 11/06/24 10:50 11/06/24 10:53 General: Alert, In no apparent distress, Oriented x3 HEENT: Atraumatic, Normocephalic Neck: Supple Respiratory: Clear to auscultation bilaterally, Normal air movement Cardiovascular: No edema, Regular rate/rhythm, Normal S1 S2 Capillary refill: <2 Seconds Gastrointestinal: Soft and benign Musculoskeletal: No swelling Integumentary: No rashes, No breakdown Neurological: Normal speech, Normal tone, Normal affect Lymphatics: No axilla or inguinal lymphadenopathy External genitalia: Deferred Rectal: Deferred Laboratory Data at Discharge: WBC 10.80 thou/uL (4.3-10.9) 11/05/24 06:31 Hgb 11.2 g/dL (12.0-15.0) L 11/05/24 06:31 Hct 35.4 % (36.0-45.0) L 11/05/24 06:31 Plt Count 306 thou/uL (152-406) 11/05/24 06:31 Sodium 138 mEq/L (136-145) 11/06/24 07:32 Potassium 3.8 mEq/L (3.5-5.1) D 11/06/24 07:32 BUN 3 mg/dL (7-18) L 11/06/24 07:32 Creatinine 0.77 mg/dL (0.55-1.02) 11/06/24 07:32 Glucose 88 mg/dL (74-106) 11/06/24 07:32 Phosphorus 3.4 mg/dL (2.5-4.9) 11/05/24 06:31 Magnesium 1.9 mg/dL (1.6-2.4) 11/06/24 07:32 Total Bilirubin 0.2 mg/dL (0.2-1.0) 11/05/24 06:31 AST 14 U/L (15-37) L 11/05/24 06:31 ALT 29 U/L (13-56) 11/05/24 06:31 Alkaline Phosphatase 56 U/L (45-117) 11/05/24 06:31 Lipase 41 U/L (13-75) 11/03/24 21:45 <Stephens,Lorna Vick - Last Filed: 11/09/24 13:25> Vital Signs/Physical Exam: Temp Pulse Resp BP Pulse Ox 97.7 F 110 H 18 110/70 97 11/09/24 16:00 11/09/24 16:00 11/09/24 16:00 11/09/24 16:00 11/09/24 16:00 Laboratory Data at Discharge: WBC 13.10 thou/uL (4.3-10.9) H 11/09/24 07:35 Hgb 9.0 g/dL (12.0-15.0) L 11/09/24 07:35 Hct 27.4 % (36.0-45.0) L 11/09/24 07:35 Plt Count 552 thou/uL (152-406) H 11/09/24 07:35 Sodium 137 mEq/L (136-145) 11/09/24 06:27 Potassium 3.6 mEq/L (3.5-5.1) 11/09/24 06:27 BUN 4 mg/dL (7-18) L 11/09/24 06:27 Creatinine 0.68 mg/dL (0.55-1.02) 11/09/24 06:27 Glucose 86 mg/dL (74-106) 11/09/24 06:27 Phosphorus 3.4 mg/dL (2.5-4.9) 11/05/24 06:31 Magnesium 1.9 mg/dL (1.6-2.4) 11/06/24 07:32 Total Bilirubin 0.2 mg/dL (0.2-1.0) 11/09/24 06:27 AST < 10 U/L (15-37) L 11/09/24 06:27 ALT < 14 U/L (13-56) 11/09/24 06:27 Alkaline Phosphatase 69 U/L (45-117) 11/09/24 06:27 Lipase 41 U/L (13-75) 11/03/24 21:45 <CARLOS Ro Ran - Last Filed: 11/09/24 16:29> Diet: Regular Activity: Fall precautions <Stephens,Lorna Vick - Last Filed: 11/09/24 13:25> <CARLOS Ro - Last Filed: 11/09/24 16:29> Home Medications: Albuterol Sulfate [Albuterol Sulfate Hfa] 2 puff IH Q4HP PRN 11/04/24 Buspirone HCl 5 mg PO TID 11/04/24 Duloxetine HCl 30 mg PO DAILY 02/11/25 Metoprolol Succinate [Toprol Xl*] 50 mg PO BID 11/04/24 Primidone 25 mg PO BID 11/04/24 Diclofenac Sodium [Voltaren Arthritis Pain] 150 gm TP BIDP PRN #60 gm 11/09/24 Furosemide [Lasix] 20 mg PO DAILY #90 tab 11/09/24 New Medications: Furosemide [Lasix] 20 mg PO DAILY #90 tab Diclofenac Sodium [Voltaren Arthritis Pain] 150 gm TP BIDP PRN #60 gm PRN Reason: Pain Scale 5-7 (Moderate) Physician Discharge Instructions: Consultations: Dr. Patel Procedures: MRI Brief History of Present Illness: 54 yrs old Female with past medical history of hypertension, congestive heart failure, asthma, tachycardia was brought to ER with pain in left hip. She also complains of abdominal pain and nausea and vomiting which has been going on for the last 1 week and has not been eating well. She had a ground level fall and started having pain in the left hip. Denies any loss of consciousness. Denies any pain in the head. No fever or chills. No nausea vomiting or diarrhea. Patient was assessed in the ER and is admitted for further management Hospital Course: Ms. Acevedo had a MRI of bilateral hips and is noted to have severe AVN of the left hip. Dr. Patel advised to stop taking narcotics and begin ambulating and weight bearing as much as possible. She will definitely require a total hip replacement but it can be done on an outpatient basis. Ms. Acevedo has both a walker and a rollator at home. Case management worked with her insurance and was able to deliver her a wheelchair to her room. She worked with physical therapy prior to discharge and will need to avoid prednisone in the future if at all possible. Case management is also working to arrange home health and Ms. Acevedo is very much looking forward to the assistance. May take Tylenol, ibuprofen as directed at home for pain, do not take on empty stomach Diet: AHA Activity: Fall precautions INSTRUCTIONS: Physician Discharge Instructions: Okay to DC IV and DC home Follow-up with primary care provider in 1 to 2 weeks Please call the inpatient unit for any questions or concerns regarding hospital stay Return to the ER for worsening symptoms Followup: Theresa Koenig [facility] [Primary Care Provider] - Ruddy Patel MD [ACTIVE - CAN ADMIT] -
--- NOTE | 2024-11-06 12:36 | P.PN ---
Date of Service: 11/06/24 Subjective Feeling a little better, Dr. Patel told her to f/u outpatient Review of Systems 10-point ROS is otherwise unremarkable, fearful of discharge, does not want to go home or stop pain medications Physical Examination - Vital Signs reviewed - Physical Exam General: Alert, Oriented x3, Mild distress, Obese, fearful of pain HEENT: Atraumatic, Normocephalic Neck: Supple Respiratory: Clear to auscultation bilaterally, Normal air movement Cardiovascular: Regular rate/rhythm, Normal S1 S2 Capillary refill: <2 Seconds Gastrointestinal: Soft and benign, W/out hepatosplenomegaly Musculoskeletal: No clubbing Integumentary: No rashes Neurological: Normal speech, Normal strength at 5/5 x3 extr, Cranial nerves 3-12 intact Lymphatics: No axilla or inguinal lymphadenopathy Assessment and Plan Severe Left hip pain/s/p fall Pain control X-ray noted No definite acute osseous abnormality. Left femoral head irregularity and superolateral subluxation is likely primarily chronic findings Orthopedic consultation - Dr. 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
[2024-11-06] MEDS: LACTULOSE 20 GM/30 ML UCUP PO ONE (17:46)
[2024-11-07] MEDS: Ringers Lactate 500 ML IV ONE (16:23)
--- NOTE | 2024-11-07 18:43 | P.PN ---
Date of Service: 11/07/24 Subjective Feeling better, Dr. Patel told her to f/u outpatient, working with PT here x 2 days. Wants HH and PT at home. Would like a w/c prior to dc. CM asked for assistance Review of Systems 10-point ROS is otherwise unremarkable, fearful of discharge, does not want to go home or stop pain medications Physical Examination - Vital Signs reviewed - Physical Exam General: Alert, Oriented x3, Mild distress, Obese, complains of asthma exacerbation today HEENT: Atraumatic, Normocephalic Neck: Supple Respiratory: Clear to auscultation bilaterally, Normal air movement Cardiovascular: Regular rate/rhythm, Normal S1 S2 Capillary refill: <2 Seconds Gastrointestinal: Soft and benign, W/out hepatosplenomegaly Musculoskeletal: No clubbing Integumentary: No rashes Neurological: Normal speech, Normal strength at 5/5 x3 extr, Cranial nerves 3-12 intact Lymphatics: No axilla or inguinal lymphadenopathy Assessment and Plan Severe Left hip pain/s/p fall Pain control X-ray noted No definite acute osseous abnormality. Left femoral head irregularity and superolateral subluxation is likely primarily chronic findings Orthopedic consultation - Dr. 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 s/p fall Hyponatremia resolved GI/DVT prophylaxis Advanced directive full code 11/05/24 pruritis - requests IV benadryl, given x 1, po ordered prn continue pain control pt on regular diet stop IVF await direction from ortho 11/06/24 will work with PT today plan for discharge tomorrow after PT - awaiting DME/insurance verification 11/07/24 still awaiting transportation, insurance verification for DME, HH with SN, PT/OT Discharge Plan: Home Plan to discharge in: 24 Hours - Advance Directives Does patient have a Living Will: No Does patient have a Durable POA for Healthcare: No - Code Status/Comfort Care Code Status: Full Code
[2024-11-08] MEDS: POTASSIUM CL SA 10 MEQ TAB PO ONE (09:01)
[2024-11-08] MEDS: METOPROLOL XL 50 MG TAB PO SCH (09:01)
--- NOTE | 2024-11-08 15:46 | P.PN ---
Date of Service: 11/08/24 Subjective sleeping this am when I made rounds but Dr. Ro made rounds later and she c/o abd pain and N/V. CBC,CMP ordered for am and US of upper abd ordered for today Review of Systems 10-point ROS is otherwise unremarkable, fearful of discharge, does not want to go home or stop pain medications Physical Examination - Vital Signs reviewed - Physical Exam General: Alert, Oriented x3, Mild distress, Obese, complains of N/V today HEENT: Atraumatic, Normocephalic Neck: Supple Respiratory: Clear to auscultation bilaterally, Normal air movement Cardiovascular: Regular rate/rhythm, Normal S1 S2, tachycardia Capillary refill: <2 Seconds Gastrointestinal: Soft and benign, W/out hepatosplenomegaly Musculoskeletal: No clubbing Integumentary: No rashes Neurological: Normal speech, Normal strength at 5/5 x3 extr, Cranial nerves 3-12 intact Lymphatics: No axilla or inguinal lymphadenopathy Assessment and Plan Severe Left hip pain/s/p fall Pain control X-ray noted No definite acute osseous abnormality. Left femoral head irregularity and superolateral subluxation is likely primarily chronic findings Orthopedic consultation - Dr. 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 Pt c/o N/V. Will get US of abd/limited. Cannot be done until 8pm for NPO x 6h status. will keep until am and obtain CBC, CMP. Expect DC tomorrow. Discharge Plan: Home Plan to discharge in: 24 Hours - Advance Directives Does patient have a Living Will: No Does patient have a Durable POA for Healthcare: No - Code Status/Comfort Care Code Status: Full Code
--- NOTE | 2024-11-08 20:25 | RAD REPORT ---
EXAM: Right upper quadrant ultrasound. CLINICAL HISTORY: Epigastric pain rule out cholelithiasis COMPARISON: None. FINDINGS: Gallbladder: Normal. Bile ducts: No intrahepatic or extrahepatic biliary dilatation. Common bile duct measures 2 mm. Limited imaging of the liver shows no concerning finding. IMPRESSION: Unremarkable exam.
[2024-11-09 07:28] LABS: Albumin/Globulin Ratio 0.5 (1.1-1.8); Alkaline Phosphatase 69 U/L (45-117); Anion Gap 9.6 mEq/L (5.0-15.0); BUN Blood Urea Nitrogen 4 mg/dL (7-18); Bicarbonate 27 mEq/L (21-32); Bilirubin Total 0.2 mg/dL (0.2-1.0); Globulin 4.1 g/dL (2.3-3.5); Glomerular Filtration Rate 103 ml/min (=/>90); Glucose Level 86 mg/dL (74-106); Potassium 3.6 mEq/L (3.5-5.1); Protein, Total 6.1 g/dL (6.4-8.2); Sodium Level 137 mEq/L (136-145)
[2024-11-09 07:37] LABS: ALT/SGPT < 14 U/L (13-56); AST/SGOT < 10 U/L (15-37)
[2024-11-09 07:50] LABS: Absolute Basophils 0.1 K/uL (0-0.5); Absolute Monocytes 1.2 K/uL (0.1-1.3); Absolute Neutrophil 9.8 K/uL (1.8-8.0); Basophils % 1.1 % (0-1.3); Eosinophils % 0.1 % (0-4.4); Hematocrit 27.4 % (36.0-45.0); MCH 25.8 pg (27.0-35.0); MCHC 32.9 g/dL (32.0-36.0); MCV 78.5 fL (80-100); MPV 7.1 fL (7.6-11.3); Monocytes % 9.5 % (3.3-12.3); Neutrophils % 74.3 % (41.7-73.7); Nucleated Red Blood Cells % 0.1 % (0-0); Platelets 552 thou/uL (152-406); RBC Red Blood Cell Count 3.49 M/uL (3.86-4.86); Red Cell Distribution Width 20.2 % (12.1-15.2)
[2024-11-09 10:38] LABS: Anisocytosis 1+; Blood Morphology Comment NOTED (NOT SEEN); Microcytosis 1+; Platelet Estimate INCR; White Blood Cell Scan OK (OK)
[2024-11-09] MEDS: DIAZEPAM 10 MG/2 ML INJ SYRINGE IV ONE (13:37)
[2024-11-09] MEDS: DIAZEPAM 5 MG TABLET PO ONE (14:02)
--- NOTE | 2024-11-09 15:11 | P.PN ---
Date of Service: 11/09/24 Subjective c/o abd pain and N/V yesterda. CBC,CMP and US of upper abd ordered for 11/08/24. results unremarkable. Today Ms. 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 W/C delivered to room yesterday. Pt states her Son is close but she would like another day in the hospital before discharge Review of Systems 10-point ROS is otherwise unremarkable, does not want to go home or stop pain medications Physical Examination - Vital Signs reviewed - Physical Exam General: Alert, Oriented x3, Mild distress, Obese, complains of N/V today HEENT: Atraumatic, Normocephalic Neck: Supple Respiratory: Clear to auscultation bilaterally, Normal air movement Cardiovascular: Regular rate/rhythm, Normal S1 S2, tachycardia Capillary refill: <2 Seconds Gastrointestinal: Soft and benign, W/out hepatosplenomegaly Musculoskeletal: No clubbing Integumentary: No rashes Neurological: Normal speech, Normal strength at 5/5 x3 extr, Cranial nerves 3-12 intact Lymphatics: No axilla or inguinal lymphadenopathy Assessment and Plan Severe Left hip pain/s/p fall Pain control X-ray noted No definite acute osseous abnormality. Left femoral head irregularity and superolateral subluxation is likely primarily chronic findings Orthopedic consultation - Dr. 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 Pt c/o N/V. Will get US of abd/limited. Cannot be done until 8pm for NPO x 6h status. will keep until am and obtain CBC, CMP. Expect DC tomorrow. 11/09/24 US negative, bloodwork unactionable, pt declines discharge. States her Son is not home/able to pick her up today. Would like to speak to CM again re: qualifications for SNF or what other HH services she is eligible for per insurance. Discharge Plan: Home Plan to discharge in: 24 Hours - Advance Directives Does patient have a Living Will: No Does patient have a Durable POA for Healthcare: No - Code Status/Comfort Care Code Status: Full Code
[2024-11-09] MEDS: methocarbamoL 500 MG TAB PO PRN (16:39)
[2024-11-09] MEDS: MORPHINE 4 MG/ML SYR IV PRN (18:19)
[2024-11-09] MEDS: POTASSIUM 25 MEQ EFFERV TAB PO ONE (20:04)
[2024-11-09] MEDS: MORPHINE 2 MG/ML SYR IV ONE (21:38)
[2024-11-10 08:07] VITALS: BP 97/56; TEMP 98.6
[2024-11-10 10:01] VITALS: O2SAT 98
--- NOTE | 2024-12-04 13:05 | P.DS ---
Discharge Date: 11/10/24 Disposition: ROUTINE DISCHARGE Discharge Condition: GOOD Reason for Admission: Left Hip Pain Brief History of Present Illness: 54 yrs old Female with past medical history of hypertension, congestive heart failure, asthma, tachycardia was brought to ER with pain in left hip. She also complains of abdominal pain and nausea and vomiting which has been going on for the last 1 week and has not been eating well. She had a ground level fall and started having pain in the left hip. Denies any loss of consciousness. Denies any pain in the head. No fever or chills. No nausea vomiting or diarrhea. Patient was assessed in the ER and is admitted for further management Hospital Course: Ms. Acevedo had a MRI of bilateral hips and is noted to have severe AVN of the left hip. Dr. Patel advised to stop taking narcotics and begin ambulating and weight bearing as much as possible. She will definitely require a total hip replacement but it can be done on an outpatient basis. Ms. Acevedo has both a w alker and a rollator at home. Case management worked with her insurance and was able to deliver her a wheelchair to her room. She worked with physical therapy prior to discharge and will need to avoid prednisone in the future if at all possible. Case management is also working to arrange home health and Ms. Acevedo is very much looking forward to the assistance. Vital Signs/Physical Exam: Temp Pulse Resp BP Pulse Ox 98.6 F 104 H 20 97/56 L 94 11/10/24 08:00 11/10/24 08:00 11/10/24 08:00 11/10/24 08:00 11/10/24 08:00 General: Alert, In no apparent distress, Oriented x3 Laboratory Data at Discharge: WBC 13.10 thou/uL (4.3-10.9) H 11/09/24 07:35 Hgb 9.0 g/dL (12.0-15.0) L 11/09/24 07:35 Hct 27.4 % (36.0-45.0) L 11/09/24 07:35 Plt Count 552 thou/uL (152-406) H 11/09/24 07:35 Sodium 137 mEq/L (136-145) 11/09/24 06:27 Potassium 3.6 mEq/L (3.5-5.1) 11/09/24 06:27 BUN 4 mg/dL (7-18) L 11/09/24 06:27 Creatinine 0.68 mg/dL (0.55-1.02) 11/09/24 06:27 Glucose 86 mg/dL (74-106) 11/09/24 06:27 Phosphorus 3.4 mg/dL (2.5-4.9) 11/05/24 06:31 Magnesium 1.9 mg/dL (1.6-2.4) 11/06/24 07:32 Total Bilirubin 0.2 mg/dL (0.2-1.0) 11/09/24 06:27 AST < 10 U/L (15-37) L 11/09/24 06:27 ALT < 14 U/L (13-56) 11/09/24 06:27 Alkaline Phosphatase 69 U/L (45-117) 11/09/24 06:27 Lipase 41 U/L (13-75) 11/03/24 21:45 Home Medications: Albuterol Sulfate [Albuterol Sulfate Hfa] 2 puff IH Q4HP PRN 11/04/24 Buspirone HCl 5 mg PO TID 11/04/24 Duloxetine HCl 30 mg PO DAILY 11/04/24 Metoprolol Succinate [Toprol Xl*] 50 mg PO BID 11/04/24 Primidone 25 mg PO BID 11/04/24 Diclofenac Sodium [Voltaren Arthritis Pain] 150 gm TP BIDP PRN #60 gm 11/09/24 Furosemide [Lasix*] 20 mg PO DAILY #90 tab 11/09/24 Hydrocodone 10/APAP 325 [[place] 10/325*] 1 tab PO Q6H PRN #20 tab 11/10/24 predniSONE [Prednisone*] 20 mg PO BID tab 11/11/24 New Medications: Furosemide [Lasix*] 20 mg PO DAILY #90 tab Hydrocodone 10/APAP 325 [[place] 10/325*] 1 tab PO Q6H PRN #20 tab PRN Reason: Pain Diclofenac Sodium [Voltaren Arthritis Pain] 150 gm TP BIDP PRN #60 gm PRN Reason: Pain Scale 5-7 (Moderate) Physician Discharge Instructions: Consultations: Dr. Patel Procedures: MRI Brief History of Present Illness: 54 yrs old Female with past medical history of hypertension, congestive heart failure, asthma, tachycardia was brought to ER with pain in left hip. She also complains of abdominal pain and nausea and vomiting which has been going on for the last 1 week and has not been eating well. She had a ground level fall and started having pain in the left hip. Denies any loss of consciousness. Denies any pain in the head. No fever or chills. No nausea vomiting or diarrhea. Patient was assessed in the ER and is admitted for further management Hospital Course: Ms. Acevedo had a MRI of bilateral hips and is noted to have severe AVN of the left hip. Dr. Patel advised to stop taking narcotics and begin ambulating and weight bearing as much as possible. She will definitely require a total hip replacement but it can be done on an outpatient basis. Ms. Acevedo has both a walker and a rollator at home. Case management worked with her insurance and was able to deliver her a wheelchair to her room. She worked with physical therapy prior to discharge and will need to avoid prednisone in the future if at all possible. Case management is also working to arrange home health and Ms. Oumar connolly is very much looking forward to the assistance. May take Tylenol, ibuprofen as directed at home for pain, do not take on empty stomach Diet: AHA Activity: Fall precautions INSTRUCTIONS: Physician Discharge Instructions: Okay to DC IV and DC home Follow-up with primary care provider in 1 to 2 weeks Please call the inpatient unit for any questions or concerns regarding hospital stay Return to the ER for worsening symptoms Diet: Regular Activity: Fall precautions Followup: Ruddy Patel MD [ACTIVE - CAN ADMIT] - 1-2 Weeks Theresa Koenig FN[facility] [Primary Care Provider] - 1-2 Weeks Time spent managing pt's care (in minutes): 35
== END 2024-11-10 12:20 | disposition home or self-care (01) | DRG 554 ==
LOC: ER 20:16 → ERHOLD 11-04 02:27 → 4TH 11-04 07:13
PROVIDERS: ADMIT Family Medicine; ATTEND Hospitalist
PROC: 0T9B70Z Drainage of Bladder with Drainage Device, Via Natural or Artificial Opening (ICD-10-PCS; principal; 2024-11-07)
DX: M87.88 Other osteonecrosis, other site (principal); E87.1 Hypo-osmolality and hyponatremia; D50.9 Iron deficiency anemia, unspecified; D63.8 Anemia in other chronic diseases classified elsewhere; L29.9 Pruritus, unspecified; M24.352 Pathological dislocation of left hip, not elsewhere classified; I10 Essential (primary) hypertension; J45.909 Unspecified asthma, uncomplicated; Z88.0 Allergy status to penicillin; Z88.1 Allergy status to other antibiotic agents; Z87.891 Personal history of nicotine dependence; W18.30XA Fall on same level, unspecified, initial encounter; Y93.9 Activity, unspecified; Y92.9 Unspecified place or not applicable; Y99.9 Unspecified external cause status
CPT/HCPCS: 36415; 51702; 71045; 72170; 73721; 74176; 76705; 80048; 80053; 81001; 82728; 82947; 83540; 83605; 83690; 83735; 84100; 84443; 84466; 85025; 85044; 87040; 96361; 96365; 96367; 96375; 97161; 97530; 97542; 99285; J0696; J1200; J1650; J2270; J2405; J2916; J2919; J3010; J3360; J3475; J3535; J7030; J7050; J7120; J7613

== ENCOUNTER 2024-11-10 14:16 | Observation (INO) | payer OTHER ==
--- NOTE | 2024-11-10 15:01 | RAD REPORT ---
Procedure: Chest Single View HISTORY: Congestion COMPARISON: November 04, 2024 FINDINGS: The lungs appear clear of acute infiltrate. No significant pleural effusion noted. The heart is normal size. IMPRESSION: No acute abnormality is displayed.
[2024-11-10] MEDS ORDERED: ALBUTEROL 2.5 MG/3 ML NEB SOL ONE (15:54)
--- NOTE | 2024-11-10 16:13 | ER ---
Nurse's Notes [facility] Name: Kelly Acevedo Age: 54 yrs Sex: Female : 1970 Arrival Date: 11/10/2024 Time: 14:16 Bed 20 Private MD: Diagnosis: Dehydration;Tachycardia, unspecified;Dyspnea Presentation: 11/10 14:25 Chief complaint:. Coronavirus screen: At this time, the client does not indicate any ko1 symptoms associated with coronavirus-19. 14:25 Method Of Arrival: Wheelchair ko1 14:25 Ebola Screen: No symptoms or risks identified at this time. Initial Sepsis Screen: Does ko1 the patient meet any 2 criteria? No. Patient's initial sepsis screen is negative. Does the patient have a suspected source of infection? No. Patient's initial sepsis screen is negative. Risk Assessment: Do you want to hurt yourself or someone else? Patient reports no desire to harm self or others. Onset of symptoms is unknown. 14:25 Acuity: CARO 3 ko1 Triage Assessment: 14:29 General: Appears in no apparent distress. Behavior is calm, cooperative, appropriate ko1 for age. Pain: Complains of pain in left hip. 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 - Infectious Disease History:: Denies. - Social history:: Smoking status: Patient/guardian denies using tobacco, but has a distant history of tobacco abuse. Screenin:17 [facility] ED Fall Risk Assessment (Adult) History of falling in the last 3 months, kc6 including since admission No falls in past 3 months (0 pts) Confusion or Disorientation No (0 pts) Intoxicated or Sedated No (0 pts) Impaired Gait Yes (1 pt) Mobility Assist Device Used Yes (1 pt) Altered Elimination No (0 pt) Score/Fall Risk Level 3 or more points = High Risk Oriented to surroundings, Maintained a safe environment, Educated pt \T\ family on fall prevention, incl call for assistance when getting out of bed. Abuse screen: Denies threats or abuse. Denies injuries from another. Nutritional screening: No deficits noted. Tuberculosis screening: No symptoms or risk factors identified. Assessment: 16:18 General: Appears in no apparent distress. uncomfortable, well groomed, well developed, kc6 Behavior is calm, cooperative, appropriate for age. Pain: Complains of pain in pelvis. Neuro: Level of Consciousness is awake, alert, obeys commands, Oriented to person, place, time, situation, Appropriate for age. Cardiovascular: Reports chest pain, palpitations, Heart tones S1 S2 present Capillary refill < 3 seconds Rhythm is sinus tachycardia. Respiratory: Reports shortness of breath at rest on exertion Airway is patent Trachea midline Respiratory effort is even, unlabored, Respiratory pattern is regular, symmetrical, Breath sounds with wheezes bilaterally. GI: Abdomen is round non-distended, Bowel sounds present X 4 quads. Abd is soft and non tender X 4 quads. Reports intolerance of fluids, intolerance of food, nausea, vomiting, Patient currently denies abdominal pain, diarrhea. : No signs and/or symptoms were reported regarding the genitourinary system. EENT: No signs and/or symptoms were reported regarding the EENT system. Derm: No signs and/or symptoms reported regarding the dermatologic system. Skin is intact, is healthy with good turgor, Skin is pink, warm \T\ dry. Musculoskeletal: Circulation, motion, and sensation intact. Range of motion: intact in all extremities. 17:18 Reassessment: Patient appears in no apparent distress at this time. No changes from kc6 previously documented assessment. Patient and/or family updated on plan of care and expected duration. Pain level reassessed. Patient is alert, oriented x 3, equal unlabored respirations, skin warm/dry/pink. 18:24 Reassessment: Patient appears in no apparent distress at this time. No changes from kc6 previously documented assessment. Patient and/or family updated on plan of care and expected duration. Pain level reassessed. Patient is alert, oriented x 3, equal unlabored respirations, skin warm/dry/pink. 19:15 Reassessment: Patient appears in no apparent distress at this time. No changes from cp4 previously documented assessment. Patient and/or family updated on plan of care and expected duration. Pain level reassessed. Patient is alert, oriented x 3, equal unlabored respirations, skin warm/dry/pink. Vital Signs: 14:25 BP 108 / 70; Pulse 104; Resp 16; Temp 97; Pulse Ox 99% on R/A; ko1 16:25 BP 105 / 77; Pulse 124; Resp 18 S; Temp 97.8(O); Pulse Ox 96% on R/A; kc6 18:31 BP 116 / 76; Pulse 117; Resp 19 S; Pulse Ox 95% on R/A; kc6 19:15 BP 102 / 79; Pulse 106; Resp 19; Pulse Ox 97% ; cp4 ED Course: 14:18 Patient arrived in ED. im 14:19 Charlotte Traore FNP-C is [facility]. kb 14:19 Gustavo Singh MD is Attending Physician. kb 14:29 Triage completed. ko1 14:29 Arm band placed on right wrist. Patient placed in waiting room, Patient notified of ko1 wait time. 14:49 Chest Single View XRAY In Process Unspecified. EDMS 15:52 Tierra Hinkle RN is Primary Nurse. kc6 16:17 Patient has correct armband on for positive identification. Bed in low position. Call kc6 light in reach. Side rails up X2. Pulse ox on. NIBP on. Door closed. Noise minimized. Lights dimmed. Warm blanket given. Pillow given. 16:17 Initial Neb Treatment Given as ordered Patient was instructed and evaluated on kc6 procedure Patient tolerated procedure well without adverse effect. 16:35 EKG done, by ED staff, reviewed by Charlotte CANALES. kc6 18:04 Missed attempt(s): 22 gauge in right wrist. Missed attempt(s): 22 gauge in left forearm.kc6 18:24 Inserted saline lock: 22 gauge in left forearm, using aseptic technique. Blood kc6 collected. Flushed with 10 mL NS. 19:13 Report given to Winter Serrano RN. kc6 19:23 Felicia Pizarro MD is Hospitalizing Provider. kb 20:11 CT Chest For PE Angio In Process Unspecified. EDMS 22:08 First set of blood cultures drawn by me. cp4 22:25 Second set of blood cultures drawn by me. cp4 22:46 No provider procedures requiring assistance completed. Patient admitted, IV remains in cp4 place. 22:47 Provided Education on: admission. cp4 Administered Medications: 15:57 Drug: Albuterol Inhalation 2.5 mg Inhalation once Route: Inhalation; kc6 16:17 Follow up: Response: No adverse reaction kc6 16:32 Drug: HYDROcodone-acetaminophen PO 5 mg-325 mg 1 tabs PO once Route: PO; kc6 18:05 Follow up: Response: No adverse reaction kc6 18:31 Drug: NS 0.9% IV 500 ml 500 ml IV at 1 bolus once; to be given as a bolus over 30 kc6 minutes Volume: 500 ml; Route: IV; Rate: 1 bolus; Site: left forearm; 19:11 Follow up: Response: No adverse reaction; IV Status: Completed infusion cp4 19:53 Drug: diphenhydrAMINE IVP 12.5 mg IVP once Route: IVP; Site: left forearm; cp4 20:56 Follow up: Response: No adverse reaction cp4 20:16 Drug: Acetaminophen PO 650 mg PO once Route: PO; cp4 20:57 Follow up: Response: No adverse reaction cp4 20:16 Drug: fentaNYL (PF) IVP 25 mcg IVP once Route: IVP; Site: left forearm; cp4 20:57 Follow up: Response: No adverse reaction cp4 21:22 Drug: Rocephin IV 1 grams IV at calculated rate once; Given slow IV push per pharmacy cp4 instructions Route: IV; Rate: calculated rate; Site: left forearm; 21:54 Follow up: Response: No adverse reaction; IV Status: Completed infusion cp4 21:55 Drug: AZITHromycin IVPB 500 mg IVPB once over 1 hrs; (mix in 250 mL NS) Route: IVPB; cp4 Infused Over: 1 hrs; Site: left forearm; 22:47 Follow up: Response: No adverse reaction; IV Status: Completed infusion cp4 Medication: 22:47 VIS not applicable for this client. cp4 Outcome: 16:12 Discharge ordered by . jacques 16:59 Discharge ordered by . jacques 19:23 Decision to Hospitalize by Provider. kb 22:13 Patient left the ED. sb4 22:46 Admitted to Med/surg accompanied by tech, via stretcher, with chart, cp4 22:46 Condition: stable 22:46 Instructed on the need for admit, Signatures: Dispatcher [employer] EDCharlotte Nguyen, KITCHEN AND COUNTER WORKER-C KITCHEN AND COUNTER WORKER-Tierra Sanchez RN RN kc6 Tanna Palomino RN RN koCande Avila, PARmC PA-C sb4 Ángela Liriano Christina cp4 Corrections: (The following items were deleted from the chart) 16: 16:18 Pain: Complains of pain in right leg and left leg kc6 kc6 16:35 16:18 Cardiovascular: Capillary refill < 3 seconds kc6 kc6 16:35 16:18 Respiratory: Reports shortness of breath at rest on exertion Airway is patent kc6 Trachea midline Respiratory effort is even, unlabored, Respiratory pattern is regular, symmetrical, kc6 16:35 16:18 GI: No signs and/or symptoms were reported involving the gastrointestinal system. kc6 kc6
--- NOTE | 2024-11-10 16:13 | EDPHYS ---
Physician Documentation [facility] Name: Kelly Acevedo Age: 54 yrs Sex: Female : 1970 Arrival Date: 11/10/2024 Time: 14:16 Bed 20 Private MD: ED Physician Gustavo Singh HPI: 11/10 16:36 This 54 yrs old Black Female presents to ER via Wheelchair with complaints of Asthma. 16:37 Pt is a 54 year old female who presents for wheezing. States she was discharged from the 4th floor this morning after being admitted for a hip fracture. States she has been wheezing for days and no one addressed it so her son brought her back to the ER. Also reports she hasn't had anything to eat or drink in 5 days. . 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 - Infectious Disease History:: Denies. - Social history:: Smoking status: Patient/guardian denies using tobacco, but has a distant history of tobacco abuse. ROS: 16:35 Constitutional: As per HPI kb Exam: 16:35 Constitutional: This is a well developed, well nourished patient who is awake, alert, kb and in no acute distress. Head/Face: Normocephalic, atraumatic. ENT: Moist Mucous membranes Cardiovascular: Regular rate Abdomen/GI: Soft, non-tender. No distention Skin: Warm, dry with normal turgor. Normal color. MS/ Extremity: Pulses equal, no cyanosis. Neurovascular intact. Full, normal range of motion. Neuro: Awake and alert, GCS 15, oriented to person, place, time, and situation. 16:35 Respiratory: the patient does not display signs of respiratory distress, Respirations: normal, Breath sounds: wheezing: expiratory that is mild, is heard in the left posterior lower lobe and right posterior lower lobe, 17:25 ECG was reviewed by the Attending Physician. Vital Signs: 14:25 BP 108 / 70; Pulse 104; Resp 16; Temp 97; Pulse Ox 99% on R/A; ko1 16:25 BP 105 / 77; Pulse 124; Resp 18 S; Temp 97.8(O); Pulse Ox 96% on R/A; kc6 18:31 BP 116 / 76; Pulse 117; Resp 19 S; Pulse Ox 95% on R/A; kc6 19:15 BP 102 / 79; Pulse 106; Resp 19; Pulse Ox 97% ; cp4 MDM: 14:19 Medical Screening Exam initiated 16:36 Differential diagnosis: URI, bronchitis, pneumonia asthma. Data reviewed: vital signs, kb nurses notes. ED course: Feeling better after treatment, tolerating po intake. 17:01 External Records Reviewed: Inpatient record: Chart from recent admission reviewed. Pt kb was admitted for pneumonia and treated with IV antibiotics. Pt was seen by Dr Patel for left hip pain that she has a "longstanding history" of. 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 No surgical intervention done while pt was admitted. . 19:17 Differential diagnosis: asthma, upper resp infection, flu. Consideration of kb Admission/Observation Patient was admitted/placed on observation. Escalation of care including admission/observation considered. Management of patient was discussed with the following: Hospitalist: Vero, pt accepted for admission. Care significantly affected by the following chronic conditions: Congestive Heart Failure. Counseling: I had a detailed discussion with the patient and/or guardian regarding the historical points, exam findings, and any diagnostic results supporting the discharge/admit diagnosis, lab results, radiology results, the need for further work-up and treatment in the hospital. ED course: Oxygen saturation 92% on room air, borderline hypotensive and tachycardic. Inpatient urinalysis showed 3+ ketones, sodium and chloride decreased, WBC increased. Will admit pt for dehydration, tachycardia and shortness of breath. Pt has no identified source of infection. Discussed with Vero, who will review CT chest. . 11/10 17:12 Order name: CBC with Diff; Complete Time: 19:45 kb 11/10 17:12 Order name: CMP; Complete Time: 18:52 kb 11/10 18:43 Order name: CBC Smear Scan; Complete Time: 19:45 EDMS 11/10 19:22 Order name: Flu; Complete Time: 20:26 kb 11/10 19:22 Order name: SARS-COV-2 Antigen Rapid; Complete Time: 20:26 kb 11/10 20:28 Order name: Blood Culture Adult (2) 4 11/10 20:28 Order name: Lactate w/ 2H reflex if indic.; Complete Time: 21:46 sb4 11/10 20:28 Order name: PT-INR; Complete Time: 21:46 sb4 11/10 20:28 Order name: Ptt, Activated; Complete Time: 21:46 4 11/10 14:34 Order name: Chest Single View XRAY; Complete Time: 15:09 kb 11/10 18:57 Order name: CT Chest For PE Angio; Complete Time: 20:27 kb 11/10 16:33 Order name: EKG; Complete Time: 16:33 kb 11/10 15:09 Order name: PO challenge; Complete Time: 15:52 kb 11/10 16:33 Order name: EKG - Nurse/Tech; Complete Time: 16:35 kb 11/10 17:12 Order name: IV Start; Complete Time: 18:24 kb EC:25 Rate is 122 beats/min. Rhythm is regular. QRS Shepherd is Normal. [place] interval is normal at kb 122 msec. QRS interval is normal at 82 msec. QT interval is normal at 444 msec. Administered Medications: 15:57 Drug: Albuterol Inhalation 2.5 mg Inhalation once Route: Inhalation; kc6 16:17 Follow up: Response: No adverse reaction kc6 16:32 Drug: HYDROcodone-acetaminophen PO 5 mg-325 mg 1 tabs PO once Route: PO; kc6 18:05 Follow up: Response: No adverse reaction kc6 18:31 Drug: NS 0.9% IV 500 ml 500 ml IV at 1 bolus once; to be given as a bolus over 30 kc6 minutes Volume: 500 ml; Route: IV; Rate: 1 bolus; Site: left forearm; 19:11 Follow up: Response: No adverse reaction; IV Status: Completed infusion cp4 19:53 Drug: diphenhydrAMINE IVP 12.5 mg IVP once Route: IVP; Site: left forearm; cp4 20:56 Follow up: Response: No adverse reaction cp4 20:16 Drug: Acetaminophen PO 650 mg PO once Route: PO; cp4 20:57 Follow up: Response: No adverse reaction cp4 20:16 Drug: fentaNYL (PF) IVP 25 mcg IVP once Route: IVP; Site: left forearm; cp4 20:57 Follow up: Response: No adverse reaction cp4 21:22 Drug: Rocephin IV 1 grams IV at calculated rate once; Given slow IV push per pharmacy cp4 instructions Route: IV; Rate: calculated rate; Site: left forearm; 21:54 Follow up: Response: No adverse reaction; IV Status: Completed infusion cp4 21:55 Drug: AZITHromycin IVPB 500 mg IVPB once over 1 hrs; (mix in 250 mL NS) Route: IVPB; cp4 Infused Over: 1 hrs; Site: left forearm; 22:47 Follow up: Response: No adverse reaction; IV Status: Completed infusion cp4 Disposition Summary: 11/10/24 19:23 Hospitalization Ordered Notes: Hospitalization Status: Observation kb Provider: Felicia Pizarro [facility]11[facility]10[facility] 19:23[facility] kb Condition: Stable(11/10/24 19:23) kb Problem: new kb Symptoms: are unchanged kb Bed/Room Type: Standard Room Assignment: 413(11/10/24 21:11) kl Diagnosis - Dehydration kb - Tachycardia, unspecified kb - Dyspnea kb Forms: - Medication Reconciliation Form kb - SBAR form kb - Leadership Thank You Letter kb Signatures: Dispatcher [employer] [facility] Charlotte Traore, PARTNERSHIP DEVELOPMENT MANAGER-C PARTNERSHIP DEVELOPMENT MANAGER-Yoly Choi RN Tierra Benitez RN RN kc6 Tanna Palomino RN RN ko1 Cande Koenig PA-C PA-C sb4 Potter, Christina cp4 Corrections: (The following items were deleted from the chart) 14:35 14:35 Chest Single View+RAD.RAD.BRZ ordered. [facility] 16:53 16:36 Counseling: I had a detailed discussion with the patient and/or guardian kb regarding the historical points, exam findings, and any diagnostic results supporting the discharge/admit diagnosis, radiology results, the need for outpatient follow up, a family practitioner, to return to the emergency department if symptoms worsen or persist or if there are any questions or concerns that arise at home, kb 16:54 16:12 Home kb kb 16:54 16:12 Stable kb kb 16:54 16:12 Unspecified asthma, uncomplicated kb kb 17:01 16:37 Pt is a 54 year old female who presents for wheezing. States she was discharged kb from the 4th floor this morning after being admitted for a hip fracture. States she has been wheezing for days and no one addressed it so her son brought her back to the ER. Also reports she hasn't had anything to eat or drink in 5 days. . kb 17:12 17:01 Counseling: I had a detailed discussion with the patient and/or guardian jacques regarding the historical points, exam findings, and any diagnostic results supporting the discharge/admit diagnosis, radiology results, the need for outpatient follow up, a family practitioner, to return to the emergency department if symptoms worsen or persist or if there are any questions or concerns that arise at home, kb 17:12 16:59 Home kb kb 17:12 16:59 Stable kb kb 17:12 16:59 Wheezing kb kb 17:13 17:13 CBC+H.LAB.BRZ ordered. EDWI EDMS 17:13 17:13 COMPREHENSIVE METABOLIC PANEL+C.LAB.BRZ ordered. EDWI EDMS 18:47 17:13 D-DIMER+COAG.LAB.BRZ ordered. EDWI EDMS 18:57 18:57 Chest For PE Angio+CT.RAD.BRZ ordered. EDWI EDMS 19:22 16:39 Management of patient was discussed with the following: I called and spoke with jacques the nurse that took care of pt on 4th floor this morning. Pt has been eating and drinking without vomiting . . kb 19:22 17:01 Test considered but Not performed: CT: CT PE considered due to recent hip kb fracture, but further investigation into inpatient chart reveals pt did not have a fracture, has chronic tachycardia (was in the 110s during admission). HR increased after albuterol nebulizer given. . kb 19:23 19:23 Influenza Screen (A \\T\\ B)+BA.LAB.BRZ ordered. EDWI EDMS 19:23 19:23 SARS-COV-2 Antigen Rapid+I.LAB.BRZ ordered. EDMS EDMS 21:11 19:23 kb kl
[2024-11-10] MEDS ORDERED: HYDROCODONE/APAP 5/325 MG TAB ONE (16:24)
[2024-11-10] MEDS ORDERED: NA CHLORIDE 0.9% 500 ML ONE (17:20)
[2024-11-10 18:30] LABS: Absolute Basophils 0.1 K/uL (0-0.5); Absolute Lymphocytes (CBC) 2.1 K/uL (0.7-4.9); Absolute Monocytes 1.1 K/uL (0.1-1.3); Absolute Neutrophil 12.8 K/uL (1.8-8.0); Basophils % 0.6 % (0-1.3); Hematocrit 31.2 % (36.0-45.0); Hemoglobin 10.2 g/dL (12.0-15.0); Lymphocytes % 13.1 % (15.3-44.8); MCH 25.5 pg (27.0-35.0); MCHC 32.7 g/dL (32.0-36.0); MPV 6.9 fL (7.6-11.3); Monocytes % 6.8 % (3.3-12.3); Neutrophils % 79.5 % (41.7-73.7); Platelets 701 thou/uL (152-406); RBC Red Blood Cell Count 4.01 M/uL (3.86-4.86); Red Cell Distribution Width 20.7 % (12.1-15.2)
[2024-11-10 18:48] LABS: AST/SGOT 11 U/L (15-37); Albumin 2.4 g/dL (3.4-5.0); Albumin/Globulin Ratio 0.5 (1.1-1.8); Alkaline Phosphatase 88 U/L (45-117); BUN Blood Urea Nitrogen 6 mg/dL (7-18); Bicarbonate 27 mEq/L (21-32); Bilirubin Total 0.3 mg/dL (0.2-1.0); Globulin 5.1 g/dL (2.3-3.5); Glomerular Filtration Rate 103 ml/min (=/>90); Glucose Level 87 mg/dL (74-106); Protein, Total 7.5 g/dL (6.4-8.2); Sodium Level 131 mEq/L (136-145)
[2024-11-10 18:49] LABS: ALT/SGPT < 14 U/L (13-56)
[2024-11-10 19:34] LABS: Anisocytosis 1+; Basophilic Stippling 1+; Blood Morphology Comment NOTED (NOT SEEN); Hypochromasia 1+; Ovalocytes SLIGHT; Platelet Estimate INCR; Poikilocytosis 1+; Polychromasia 1+; Teardrop Cell FEW; White Blood Cell Scan OK (OK)
[2024-11-10] MEDS ORDERED: DIPHENHYDRAMINE 50 MG/ML VIAL ONE (19:35)
[2024-11-10] MEDS ORDERED: FENTANYL CITR 100 MCG/2 ML ONE (19:56)
[2024-11-10] MEDS ORDERED: ACETAMINOPHEN 325 MG TABLET ONE (19:57)
[2024-11-10 19:58] LABS: SARS-CoV-2 Antigen CONTROL BLUE LINE VIS/BG OK; SARS-CoV-2 Antigen Rapid Res Negative (Negative)
--- NOTE | 2024-11-10 20:26 | RAD REPORT ---
EXAMINATION: CTA CHEST PE CLINICAL INDICATION: Shortness of breath pain TECHNIQUE: 100 cc 370 Isovue administered intravenously. This examination was performed according to an angiographic protocol with 3D post-processing. This involves 3D reconstructions, MIPs, volume rendered images and/or shaded surface rendering. One or more of the following dose reduction techniqu es were used: Automated exposure control, adjustment of the mA and/or kV according to patient size, and/or iterative reconstruction. Unless otherwise specified, incidental findings do not require dedic ated imaging follow-up. [id number]. COMPARISON: No prior exam. FINDINGS: A pulmonary embolus is not seen. An aortic aneurysm not noted. No pleural effusion. No pericardial effusion. Mild to moderate tree-in-bud opacities are scattered throughout the lungs bilaterally. [id number] hiatal hernia IMPRESSION: No evidence of a pulmonary embolism Mild to moderate bilateral tree-in-bud opacities within the lungs bilaterally may represent atypical pneumonia
--- NOTE | 2024-11-10 20:39 | P.HP ---
Certification for Inpatient Patient admitted to: Inpatient With expected LOS: >2 Midnights Patient will require the following post-hospital care: Other (LTAC) Practitioner: I am a practitioner with admitting privileges, knowledge of patient current condition, hospital course, and medical plan of care. Services: Services provided to patient in accordance with Admission requirements found in Title 42 Section 412.3 of the Code of Federal Regulations Patient History Date of Service: 11/10/24 Reason for admission: Pneumonia, sepsis History of Present Illness: Ms. Acevedo is a 54 year old female with past medical history of hypertension, congestive heart failure, asthma, and tachycardia was presented to the emergency department with complaints of shortness of breath and wheezing. 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 Today she was found to have an atypical pneumonia bilaterally with an associated 16k white blood cell count. Blood cultures were obtained and she was given rocephin and azithromycin. Will admit for further management of sepsis secondary to pneumonia. Allergies codeine Allergy (Verified 11/04/24 05:18) Itching/Hives/Rash iodine Allergy (Verified 11/04/24 05:18) Itching/Hives/Rash meperidine [From Demerol] Allergy (Verified 11/04/24 05:18) Nausea/Vomiting NSAIDS (Non-Steroidal Anti-Inflamma Allergy (Verified 11/04/24 05:18) Itching/Hives/Rash tramadol Allergy (Verified 11/04/24 05:18) Itching/Hives/Rash hydromorphone [From Dilaudid] Adverse Reaction (Verified 11/04/24 05:18) Nausea/Vomiting Home medications list reviewed: Yes Home Medications: Albuterol Sulfate [Albuterol Sulfate Hfa] 2 puff IH Q4HP PRN 11/04/24 Buspirone HCl 5 mg PO TID 11/04/24 Duloxetine HCl 30 mg PO DAILY 11/04/24 Metoprolol Succinate [Toprol Xl*] 50 mg PO BID 11/04/24 Primidone 25 mg PO BID 11/04/24 Diclofenac Sodium [Voltaren Arthritis Pain] 150 gm TP BIDP PRN #60 gm 11/09/24 Furosemide [Lasix] 20 mg PO DAILY #90 tab 11/09/24 Hydrocodone 10/APAP 325 [[place] 10/325] 1 tab PO Q6H PRN #20 tab 11/10/24 Hydrocodone 10/APAP 325 [[place] 10/325] 1 tab PO Q6H PRN #30 tab 11/10/24 - Past Medical/Surgical History Diabetic: Yes -: Hypertension -: CHF -: Diabetes -: Tachycardia -: Asthma -: Psychosocial/ Personal History: Patient lives at home with her son - Family History Family History: Reviewed- Non-Contributory - Social History Smoking Status: Never smoker Alcohol use: No CD- Drugs: No Caffeine use: Yes Place of Residence: Home Review of Systems 10-point ROS is otherwise unremarkable General: Weakness Respiratory: Shortness of Breath, Pleuritic Pain Cardiovascular: Palpitations Musculoskeletal: Other (Left leg pain) Physical Examination - Vital Signs Temperature: 97.8 F Blood Pressure: 102/79 Pulse: 106 Respirations: 19 Pulse Ox (%): 97 - Physical Exam General: Alert, Oriented x3 HEENT: Atraumatic, Normocephalic Neck: Supple, JVD not distended Respiratory: Expiratory wheezes Cardiovascular: No edema, Regular rate/rhythm Gastrointestinal: Soft and benign, Non-distended Musculoskeletal: No tenderness, No warmth Integumentary: No rashes, No breakdown Neurological: Normal speech, Sensation intact External genitalia: Deferred Rectal: Deferred - Studies Laboratory Data (last 24 hrs) 11/10/24 11/10/24 18:24 18:24 WBC 16.10 H Hgb 10.2 L Hct 31.2 L Plt Count 701 H Sodium 131 L Potassium 4.0 BUN 6 L Creatinine 0.67 Glucose 87 Total Bilirubin 0.3 AST 11 L ALT < 14 Alkaline Phosphatase 88 Microbiology Data (last 24 hrs): 11/10/24 19:40 Nasopharnyx Influenza Type A Antigen Screen - Final 11/10/24 19:40 Nasopharnyx Influenza Type B Antigen Screen - Final Assessment and Plan - Problems (Diagnosis) (1) Atypical pneumonia Current Visit: Yes Status: Acute Plan: Azithromyin and rocephin Blood cultures obtained PRN nebs Monitor O2, not currently requiring NC (2) Sepsis Current Visit: Yes Status: Acute Plan: Azithromyin and rocephin Blood cultures obtained Qualifiers: Sepsis type: sepsis due to unspecified organism Sepsis acute organ dysfunction status: without acute organ dysfunction Qualified Code(s): A41.9 - Sepsis, unspecified organism (3) Hypertension Current Visit: Yes Status: Chronic Plan: Continue metoprolol Qualifiers: Hypertension type: primary hypertension Qualified Code(s): I10 - Essential (primary) hypertension (4) Asthma Current Visit: Yes Status: Chronic Plan: PRN nebs Monitor O2 Qualifiers: Asthma severity: unspecified severity Asthma persistence: unspecified Asthma complication type: with acute exacerbation Qualified Code(s): J45.901 - Unspecified asthma with (acute) exacerbation (5) Congestive heart failure (CHF) Current Visit: Yes Status: Chronic Plan: Continue lasix Qualifiers: Heart failure type: diastolic Heart failure chronicity: chronic Qualified Code(s): I50.32 - Chronic diastolic (congestive) heart failure (6) Tachycardia Current Visit: Yes Status: Chronic Plan: Continue metoprolol - Plan Lovenox for DVT prophylaxis Discharge Plan: Prison Plan to discharge in: Greater than 2 days - Advance Directives Does patient have a Living Will: No Does patient have a Durable POA for Healthcare: No - Code Status/Comfort Care Code Status Assessed: Yes Code Status: Full Code Critical Care: No Time Spent Managing Pts Care (In Minutes): 50
[2024-11-10] MEDS ORDERED: CEFTRIAXONE 1000 MG/VIAL ONE (21:14)
[2024-11-10] MEDS ORDERED: AZITHROMYCIN 500 MG INJ IVPB ONE (21:14)
[2024-11-10] MEDS ORDERED: NA CHLORIDE 0.9% 250 ML ONE (21:15)
[2024-11-10] MEDS ORDERED: NA CHLORIDE 0.9% 100 ML ONE (21:15)
[2024-11-10 21:27] LABS: PTT, Activated Partial Thromb 30.3 SECONDS (24.3-36.9); Protime INR 1.34
[2024-11-10] MEDS ORDERED: ACETAMINOPHEN 325 MG TABLET PO PRN (22:04)
[2024-11-10] MEDS ORDERED: DICLOFENAC SODIUM TOP PRN (22:04)
[2024-11-10] MEDS ORDERED: HYDROCODONE/APAP 10/325 TAB PO PRN (22:04)
[2024-11-10] MEDS ORDERED: IPRATROPIUM BROM 0.5MG/2.5ML NEB PRN (22:04)
[2024-11-10] MEDS ORDERED: ONDANSETRON 4 MG/2 ML VIAL IV PRN (22:04)
[2024-11-10] MEDS ORDERED: ALBUTEROL 2.5 MG/3 ML NEB SOL NEB PRN (22:04)
[2024-11-10 22:40] VITALS: O2SAT 96
[2024-11-10] MEDS: HYDROCODONE/APAP 10/325 TAB PO PRN (23:28)
[2024-11-11 01:46] VITALS: BMI 27.8
[2024-11-11 06:20] LABS: Absolute Basophils 0.1 K/uL (0-0.5); Absolute Lymphocytes (CBC) 1.8 K/uL (0.7-4.9); Absolute Monocytes 1.2 K/uL (0.1-1.3); Absolute Neutrophil 8.5 K/uL (1.8-8.0); Basophils % 0.9 % (0-1.3); Eosinophils % 0.3 % (0-4.4); Hematocrit 30.2 % (36.0-45.0); Hemoglobin 9.9 g/dL (12.0-15.0); Lymphocytes % 15.3 % (15.3-44.8); MCHC 32.8 g/dL (32.0-36.0); MCV 79.4 fL (80-100); MPV 6.7 fL (7.6-11.3); Neutrophils % 73.5 % (41.7-73.7); Nucleated Red Blood Cells % 0.1 % (0-0); Platelets 659 thou/uL (152-406); Red Cell Distribution Width 19.9 % (12.1-15.2)
[2024-11-11 06:39] LABS: Anion Gap 9.9 mEq/L (5.0-15.0); Magnesium 1.8 mg/dL (1.6-2.4); Phosphorus 4.3 mg/dL (2.5-4.9); Potassium 3.9 mEq/L (3.5-5.1)
[2024-11-11] MEDS: predniSONE 20 MG TAB PO SCH (09:00)
[2024-11-11] MEDS ORDERED: AZITHROMYCIN IV 250 MG in NA CHLORIDE 0.9% 250 ML IVPB SCH (09:00)
[2024-11-11] MEDS: METOPROLOL TAR 25 MG TAB PO ONE (09:01)
[2024-11-11] MEDS: ENOXAPARIN 40 MG/0.4 ML SQ SCH (09:01)
[2024-11-11] MEDS: AZITHROMYCIN IV 500 MG in NA CHLORIDE 0.9% 250 ML IVPB SCH (09:01)
[2024-11-11] MEDS: CEFTRIAXONE 1,000 MG in NA CHLORIDE 0.9% 50 ML IVPB SCH (09:01)
[2024-11-11] MEDS: METOPROLOL TARTRATE 5 MG/5 ML INJ IV SCH (09:25)
[2024-11-11 16:38] VITALS: BP 93/64; TEMP 98.2
[2024-11-11] MEDS ORDERED: METOPROLOL TAR 25 MG TAB PO SCH (18:00)
[2024-11-11] MEDS ORDERED: CEFDINIR 300 MG CAP PO SCH (21:00)
== END 2024-11-11 18:06 | disposition home or self-care (01) ==
LOC: ER 14:16 → INTOOBSV 20:33 → ERHOLD 20:33 → 4TH 21:49
PROVIDERS: ADMIT Hospitalist; ATTEND Hospitalist
DX: J18.9 Pneumonia, unspecified organism (principal); A41.9 Sepsis, unspecified organism; I50.32 Chronic diastolic (congestive) heart failure; I10 Essential (primary) hypertension; E86.0 Dehydration; J45.909 Unspecified asthma, uncomplicated; R00.0 Tachycardia, unspecified; Z88.5 Allergy status to narcotic agent; Z88.6 Allergy status to analgesic agent; Z88.0 Allergy status to penicillin; Z11.52 Encounter for screening for COVID-19
CPT/HCPCS: 96365; 96367; 96361; 87040 ×2; 85025 ×2; 80048; 36415; 83735; 84100; 85610; 83605; 85730; 80053; 84145; 83880; 83930; 87804 ×2; 71275; 71045; 97110; 97161; 97530; 94640; 96375; 99285; 87811; Q9967; J7512; J1200; J7613; J1650; J3010; J7050 ×2; J7040; J0696 ×2; 93005; G0378